=== PATIENT | male | born 1970 | race Caucasian/White ===

== ENCOUNTER 2021-06-05 16:28 | Emergency (ER) | payer OTHER, SELFPAY ==
--- NOTE | ~2021-06-05 | CT_ITS ---
EXAMINATION: CT HEAD WITHOUT CONTRAST CT CERVICAL SPINE WITHOUT CONTRAST CLINICAL INFORMATION: Fall with midline tenderness. COMPARISON: None. TECHNIQUE: Contiguous axial imaging was performed from the skull base to vertex without intravenous administration of contrast. Contiguous axial imaging was performed from the upper chest through the skull base without intravenous administration of contrast. Coronal and sagittal reformats were obtained at the acquisition workstation. This CT examination was performed using dose optimization techniques as appropriate, variously including the following: *Automated exposure control *Adjustment of mA and/or kV according to patient size (this includes techniques or standardized protocols for targeted exams where dose is matched to indication/reason for exam; i.e. extremities or head) *Use of iterative reconstruction technique DLP: 599 mGy-cm FINDINGS: Head: There is no evidence of acute intracranial hemorrhage or edematous territorial infarction. There is no abnormal attenuation within the brain parenchyma. Robb-white matter differentiation is preserved. The ventricles are normal in size and configuration. No evidence for obstructive hydrocephalus. No abnormal mass effect or midline shift. No extra-axial fluid collections. Right occipital scalp laceration with a small hematoma. Mucus retention cyst in the left maxillary sinus. Other paranasal sinuses and mastoids are clear. Cervical Spine: The atlantooccipital and atlantoaxial articulations remain well aligned. Straightening of the normal cervical lordosis and minimal retrolisthesis of C6 on C7. Otherwise, there is anatomic alignment of the vertebral bodies and posterior elements. No evidence of acute fracture or subluxation. Mild cervical spondylosis with disc space narrowing, osteophytes and uncovertebral hypertrophy, more apparent in the lower cervical spine. There is no prevertebral soft tissue swelling. The thyroid gland and remaining cervical soft tissues are normal in appearance. The lung apices demonstrate no abnormalities. CT/CT cervical spine wo con IMPRESSION: No acute intracranial pathology. No acute cervical spinal fractures or malalignment.
[2021-06-05 16:48] VITALS: BP 110/60; BP 133/81; PULSE 64; PULSE 70; RESP 18; TEMP 36.9; O2SAT 100; O2SAT 98; BMI 33.4
--- NOTE | 2021-06-05 18:07 | PC.NURSE ---
Ana Rosa (RN at [facility]) phone number- [phone].
[2021-06-05 18:25] VITALS: BP 144/94; PULSE 60; RESP 15; O2SAT 100
[2021-06-05 18:36] VITALS: BP 116/72; PULSE 76; RESP 16; TEMP 37; O2SAT 99
[2021-06-05] MEDS: Ondansetron ODT 4 MG TAB.RAPDIS TRANSLINGU (18:38)
[2021-06-05] MEDS: Acetaminophen 325 MG TABLET 650 MG PO (18:38)
--- NOTE | 2021-06-05 18:43 | ED.FALL ---
HPI - Fall General Chief Complaint: Fall Stated Complaint: slip and fall on ice Time Seen by Provider: 06/05/21 18:14 Source: patient Mode of arrival: ambulatory Limitations: no limitations History of Present Illness HPI Narrative: Patient comes emergency room complaining of a laceration to his scalp. Patient was at home, playing with his puppy, both were chasing a ball. Patient stepped on ice slipped and hit the back of his head. Patient did not lose consciousness, patient is not on blood thinners. Patient states that he has mild neck pain, complaining of moderate headache. Related Data Allergies Allergy/AdvReac Type Severity Reaction Status Date / Time No Known Allergies Allergy Verified 06/05/21 16:47 Review of Systems Review of Systems: Constitutional : No Weight loss, No Fever, No Chills, No Night Sweats, No Fatigue, No Malaise ENT/Mouth : No Hearing loss, No Ear Pain, No Nasal Congestion, No Sinus Pain, No Hoarseness, No sore throat, No Rhinorrhea, No Swallowing Difficulty Eyes: No Eye Pain, No Swelling, No Redness, No Foreign Body, No Discharge, No Vision Changes Cardiovascular : No Chest Pain, No SOB, No Dyspnea on Exertion, No Orthopnea, No Edema, No Palpitations Respiratory : No Cough, No Sputum, No Wheezing, No Smoke Exposure, No Dyspnea Gastrointestinal : No Nausea, No Vomiting, No Diarrhea, No Constipation, No abdominal Pain, No Hematochezia, No Melena Genitourinary : no irregular bleeding, No Dysuria, No Urinary Frequency, No Hematuria, No Urinary Incontinence, No Urgency, No Flank Pain, No Urinary Flow Changes, No Hesitancy Musculoskeletal : No joint pain, No Myalgias, No Joint Swelling, complaining of mild neck pain posteriorly Skin : Complaining of a laceration to the scalp Neuro : No Weakness, No Numbness, No Paresthesias, No Loss of Consciousness, No Dizziness, complaining of a headache Psych : No Anxiety/Panic, No Depression, No SI/HI/AH/VH, No Social Issues, Heme/Lymph: No Bruising, No Bleeding,No Lymphadenopathy Endocrine : No Polyuria, No Polydipsia, No Temperature Intolerance [facility] Social History Social History Alcohol intake: current Alcohol intake frequency: 0-2 drinks per day Alcohol type: beer Smoked in Last 30 Days: No Use of substances other than those prescribed or required for medical reasons: No Advance Directives: No Advance Directives Information Provided: Yes Physical Exam Vital Signs: Vital Signs: Last Vital Signs Temp 97.9 F 06/05/21 19:16 Pulse 59 06/05/21 19:16 Resp 16 06/05/21 19:16 BP 135/84 06/05/21 19:16 Pulse Ox 100 06/05/21 19:16 BMI result Body Mass Index 33.4 Const: Other: Appearance: Alert. Oriented X3. No acute distress. Eyes: Pupils equal, round and reactive to light. ENT: Pharynx normal. Neck: Normal inspection. Neck supple. No lymph nodes noted. No crepitus CVS: Normal heart rate and rhythm. Pulses normal. Normal S1 and S2 Respiratory: No respiratory distress. Breath sounds normal. No Wheezing. No rales Abdomen: Soft and nontender. No rigidity. No distention. good BS x4 Skin: Skin warm and dry. Y shaped laceration to the scalp Extremities: No lower extremity edema. No Lacerations. No Rash Neuro: Oriented X 3. No motor deficit. No sensory deficit. Moving all extermities. No slurred speech. Course Course Course Narrative: I discussed the CT scan with the patient, no acute findings. Procedures Laceration Laceration 1: Site: scalp Size (cm): 3 Description: stellate and irregular Depth: simple, single layer Local Anesthetic: lidocaine 1% Amount of anesthesia used (mL): 3 Skin layer closed with: other (Nino) Number of sutures: 4 MDM - Fall Imaging Data Head CT and cervical spine CT: Radiologist's impression: FINDINGS: Head: There is no evidence of acute intracranial hemorrhage or edematous territorial infarction. There is no abnormal attenuation within the brain parenchyma. Robb-white matter differentiation is preserved. The ventricles are normal in size and configuration. No evidence for obstructive hydrocephalus. No abnormal mass effect or midline shift. No extra-axial fluid collections. Right occipital scalp laceration with a small hematoma. Mucus retention cyst in the left maxillary sinus. Other paranasal sinuses and mastoids are clear. Cervical Spine: The atlantooccipital and atlantoaxial articulations remain well aligned. Straightening of the normal cervical lordosis and minimal retrolisthesis of C6 on C7. Otherwise, there is anatomic alignment of the vertebral bodies and posterior elements. No evidence of acute fracture or subluxation. Mild cervical spondylosis with disc space narrowing, osteophytes and uncovertebral hypertrophy, more apparent in the lower cervical spine. There is no prevertebral soft tissue swelling. The thyroid gland and remaining cervical soft tissues are normal in appearance. The lung apices demonstrate no abnormalities. CT/CT head/brain wo con IMPRESSION: No acute intracranial pathology. No acute cervical spinal fractures or malalignment. Discharge Plan Discharge Clinical Impression: Laceration of scalp Patient Disposition: Home, Self-Care Instructions: Staple Care (ED) Additional Instructions: Your nino need to be removed in 7-10 days.
[2021-06-05 19:16] VITALS: BP 135/84; PULSE 59; RESP 16; TEMP 36.6; O2SAT 100
== END 2021-06-05 21:25 | disposition home or self-care (01) ==
PROVIDERS: Emergency Provider Emergency Medicine
DX: S01.01XA Laceration without foreign body of scalp, initial encounter (principal); G44.309 Post-traumatic headache, unspecified, not intractable; M54.2 Cervicalgia; W00.0XXA Fall on same level due to ice and snow, initial encounter; Y93.9 Activity, unspecified; Y92.480 Sidewalk as the place of occurrence of the external cause; Y99.9 Unspecified external cause status
CPT/HCPCS: 12002; 70450; 72125; 99284

== ENCOUNTER 2021-07-26 08:40 | Outpatient (REF) | payer OTHER, MEDICAID, SELFPAY ==
[2021-07-26 11:16] LABS: MANUAL DIFF FLAG NO
[2021-07-26 11:22] LABS: Basophils Percent Auto 0.6 % (0-2); Eosinophils Absolute Auto 0.2 X10*3/uL (0.0-0.4); Eosinophils Percent Auto 4.2 % (0-4); Hematocrit 40.6 % (42.0-52.0); Hemoglobin 13.6 g/dl (14.0-18.0); Imm Gran Abs Auto 0.01 X10*3/uL (0.00-0.03); Imm Gran Pct Auto 0.2 % (0.0-0.4); Lymphocytes Percent Auto 40.1 % (20-40); Mean Corpuscular HGB Conc 33.5 g/dl (31.0-36.0); Mean Corpuscular Hemoglobin 29.2 pg (27.0-33.0); Mean Corpuscular Volume 87.3 fL (80.0-98.0); Mean Platelet Volume 10.3 fL (9.4-12.4); Monocytes Absolute Auto 0.5 X10*3/uL (0.1-1.2); Monocytes Percent Auto 10.5 % (2-11); Neutrophils Absolute Auto 2.2 x10*3/uL (2.0-8.3); Neutrophils Percent Auto 44.4 % (45-73); Platelet Count 267 X10*3/uL (160-400); Red Blood Count 4.65 X10*6/uL (4.60-5.80); Red Cell Distribution Width 12.7 % (11.0-16.0)
[2021-07-26 11:47] LABS: Alanine Aminotransferase 43 U/L (0-40); Alkaline Phosphatase 64 U/L (39-117); Anion Gap 13 (12-20); Aspartate Amino Transferase 32 U/L (5-37); Bilirubin Total 0.5 mg/dL (0.0-1.0); Blood Urea Nitrogen 14 mg/dL (9-16); Calcium 9.2 mg/dL (8.4-10.2); Carbon Dioxide 26 mmol/L (22-29); Chloride 105 mmol/L (96-108); Cholesterol 207 mg/dL; Estimated Glomerular Filt Rate > 60; Glucose Fasting 111 mg/dL (60-99); HDL Cholesterol 61 mg/dL; LDL Cholesterol Calculated 136 mg/dl; Potassium 4.6 mmol/L (3.3-5.1); Sodium 139 mmol/L (135-145); Total Protein 6.9 g/dL (6.5-8.0); Triglycerides 50 mg/dL
[2021-07-26 11:53] LABS: TSH reflex Free T4 2.04 uIU/mL (0.32-4.0)
[2021-07-26 12:09] LABS: Estimated Average Glucose 108 mg/dL; Hemoglobin A1c % 5.4 %
[2021-07-26 12:11] LABS: Folate 14.6 ng/mL (> or = 4.0); Vitamin B12 313 pg/mL (200-900)
[2021-07-31 15:06] LABS: Vitamin D 25-OH, D2 <4 ng/mL; Vitamin D 25-OH, D3 23 ng/mL; Vitamin D 25-OH, Total 23 ng/mL (30-100)
== END 2021-07-26 08:41 | disposition home or self-care (01) ==
LOC: HO.HMGCLDS 08:40
PROVIDERS: PCP Nurse Practitioner Acute Care; Visit Provider Nurse Practitioner Acute Care
DX: Z76.89 Persons encountering health services in other specified circumstances (principal)
CPT/HCPCS: 36415; 80053; 80061; 82306; 82607; 82746; 83036; 84443; 85025

== ENCOUNTER 2021-10-23 09:00 | Outpatient (RCR) | payer OTHER, SELFPAY ==
--- NOTE | 2021-08-22 14:57 | MHC.PT.EP ---
[facility] [place] Office [place] Office [place] Office [address] [phone] F: [phone] F: [phone] F: [phone] F: [phone] Physical Therapy Plan of Care Date of Evaluation: Date of Surgery: none Diagnosis: Cervical disc degeneration with radiculopathy Assessment: Patient is a 51 year old R handed male who presents with s/s consistent with cervical disc degeneration with radiculopathy. 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 Patient past medical history is unremarkable. Current impairments include pain, posture, ROM, strength, activity tolerance and functional mobility. Functional limitations include decreased ability to sit, work, work on computer and drive. Patient is motivated with good rehab potential. Skilled PT will address impairments and functional limitations in order to achieve goals. Frequency and Duration: The patient will be seen 2x/week for 5 weeks Short Term Goals: I with HEP - 2 weeks (-) impingement cluster - 3 weeks reduced frequency of thumb paresthesia - 3 weeks Fpc Goals: eliminated thumb paresthesia - 5 weeks completion of work place modifications with reduce cervical s/s - 5 weeks pec tightness min - 5 weeks Treatment Plan: Modalities to reduce pain, spasms and effusion. Manual therapy to restore motion and function. Therapeutic exercise to improve strength and flexibility. Neuromuscular re-education for posture and balance. Therapeutic activities to return to functional activities of daily living. Electronically signed by: Barak Lemus PT Please sign and return to therapist. Thank you for your referral.
--- NOTE | 2022-01-31 10:18 | MHC.PT.DC ---
[facility] [place] Office [place] Office [place] Office [address] [phone] F: [phone] F: [phone] F: [phone] F: [phone] Physical Therapy Discharge Report Diagnosis: Cervical disc degeneration with radiculopathy Date of Surgery: none Date of Evaluation: 08/22/21 Date of Discharge: 11/02/21 Treatments to Date: 11 Cancellations to Date: No Shows to Date: Discharge Status: Improved Function Independent with HEP Discharge Summary: Pt progressed well over the course of PT. He has HEP And eventually had to stop coming to PT and continued exclusively with his HEP. 10/23; Pt sxs resolved after RX. Improved c/s mobility and no c/o N/T Electronically signed by: Barak Lemus, PT Please sign and return to therapist. Thank you for your referral.
== END 2022-01-31 10:18 | disposition home or self-care (01) ==
LOC: HO.PTCHIC 09:00
PROVIDERS: PCP Nurse Practitioner Acute Care; Visit Provider Nurse Practitioner Acute Care
DX: M50.30 Other cervical disc degeneration, unspecified cervical region (principal)
CPT/HCPCS: 97110; 97140; 97161

== ENCOUNTER 2021-12-26 12:13 | Outpatient (REF) | payer OTHER, SELFPAY ==
[2021-12-26 13:54] LABS: MANUAL DIFF FLAG NO
[2021-12-26 13:54] LABS: Appearance Urine Clear; Color Urine Yellow; Glucose Urine UA Negative (Negative); Leukocyte Esterase Urine Negative (Negative); Nitrite Urine Negative (Negative); Specific Gravity - Urine 1.015 (1.005-1.025); Urine Blood Negative (Negative); Urine Ketones Negative (Negative); Urine Protein Negative (Neg-Trace)
[2021-12-26 14:01] LABS: Basophils Percent Auto 0.5 % (0-2); Eosinophils Absolute Auto 0.2 X10*3/uL (0.0-0.4); Eosinophils Percent Auto 3.5 % (0-4); Hematocrit 41.1 % (42.0-52.0); Hemoglobin 14.2 g/dl (14.0-18.0); Imm Gran Abs Auto 0.01 X10*3/uL (0.00-0.03); Imm Gran Pct Auto 0.2 % (0.0-0.4); Lymphocytes Percent Auto 35.1 % (20-40); Mean Corpuscular HGB Conc 34.5 g/dl (31.0-36.0); Mean Corpuscular Hemoglobin 29.8 pg (27.0-33.0); Mean Corpuscular Volume 86.2 fL (80.0-98.0); Mean Platelet Volume 10.4 fL (9.4-12.4); Monocytes Absolute Auto 0.6 X10*3/uL (0.1-1.2); Monocytes Percent Auto 10.5 % (2-11); Neutrophils Absolute Auto 2.9 x10*3/uL (2.0-8.3); Neutrophils Percent Auto 50.2 % (45-73); Platelet Count 248 X10*3/uL (160-400); Red Blood Count 4.77 X10*6/uL (4.60-5.80); Red Cell Distribution Width 12.8 % (11.0-16.0); White Blood Count 5.7 X10*3/uL (4.8-10.8)
[2021-12-26 14:25] LABS: Alanine Aminotransferase 35 U/L (0-40); Albumin Level 4.2 g/dL (3.5-5.0); Alkaline Phosphatase 69 U/L (39-117); Anion Gap 14 (12-20); Aspartate Amino Transferase 28 U/L (5-37); Bilirubin Total 0.4 mg/dL (0.0-1.0); Blood Urea Nitrogen 12 mg/dL (9-16); Calcium 8.9 mg/dL (8.4-10.2); Carbon Dioxide 26 mmol/L (22-29); Chloride 104 mmol/L (96-108); Estimated Glomerular Filt Rate > 60; Glucose Fasting 96 mg/dL (60-99); Potassium 4.7 mmol/L (3.3-5.1); Sodium 139 mmol/L (135-145); Total Protein 7.1 g/dL (6.5-8.0)
[2021-12-26 14:50] LABS: TSH reflex Free T4 2.09 uIU/mL (0.32-4.0)
[2021-12-26 14:59] LABS: Erythrocyte Sedimentation Rate 2 MM/HR (0-15)
[2021-12-27 21:10] LABS: Lyme Abs Screen <0.90 index
== END 2021-12-26 12:14 | disposition home or self-care (01) ==
LOC: HO.HMGCLDS 12:13
PROVIDERS: Visit Provider Family Medicine
DX: Z00.00 Encounter for general adult medical examination without abnormal findings (principal); R53.83 Other fatigue; T14.8XXA Other injury of unspecified body region, initial encounter; W57.XXXA Bitten or stung by nonvenomous insect and other nonvenomous arthropods, initial encounter
CPT/HCPCS: 36415; 80053; 81003; 84443; 85025; 85652; 86617; 86618

== ENCOUNTER 2022-02-15 09:21 | Outpatient (REF) | payer OTHER, SELFPAY ==
[2022-02-15 11:51] LABS: C Reactive Protein 0.36 mg/dL (< or = 0.50); Cholesterol 194 mg/dL; HDL Cholesterol 57 mg/dL; LDL Cholesterol Calculated 128 mg/dl; Triglycerides 48 mg/dL
[2022-02-15 11:58] LABS: Prostate Specific Antigen 0.58 ng/mL (<0.05-4.0)
[2022-02-15 12:06] LABS: Erythrocyte Sedimentation Rate 5 MM/HR (0-15)
== END 2022-02-15 09:22 | disposition home or self-care (01) ==
LOC: HO.HMGCLDS 09:21
PROVIDERS: PCP Internal Medicine; Visit Provider Internal Medicine
DX: Z12.5 Encounter for screening for malignant neoplasm of prostate (principal); R53.83 Other fatigue; E78.5 Hyperlipidemia, unspecified
CPT/HCPCS: 36415; 80061; 84153; 85652; 86140

== ENCOUNTER 2022-03-12 14:54 | Outpatient (REF) | payer OTHER, SELFPAY ==
--- NOTE | ~2022-03-12 | MR_ITS ---
EXAMINATION: MR CERVICAL SPINE WITHOUT CONTRAST CLINICAL INFORMATION: Right arm radiculopathy. COMPARISON: CT dated 06/05/2021. TECHNIQUE: Multiplanar, multisequential imaging of the cervical spine was performed without contrast. FINDINGS: VERTEBRAL BODIES AND PARASPINAL SOFT TISSUES: There is significant disc space narrowing with endplate spurring and a retrosubluxation again visible at the C6-C7 level. The marrow signal is homogeneous. There are no compression fractures. No marrow or soft tissue edema evident. The paraspinal soft tissues are normal. The vertebral artery flow-voids are maintained. The imaged portions of the lungs are grossly clear. CERVICOMEDULLARY JUNCTION AND VISUALIZED POSTERIOR FOSSA: The craniovertebral junction and imaged portions of the brain parenchyma appear normal. No cord signal abnormality or syrinx is seen. SPINAL LEVELS: C2-C3: No disc pathology. Mild uncovertebral joint spurring on the right side with very mild right foraminal encroachment. No central canal stenosis. C3-C4: Small central disc protrusion. No central canal stenosis or foraminal narrowing. C4-C5: Small left paracentral disc protrusion. No central canal stenosis or foraminal encroachment. C5-C6: Mild retrosubluxation and broad-based disc-osteophyte complex with a small central disc protrusion mildly impressing upon the ventral cord and thecal sac. No central canal stenosis. Very mild left foraminal narrowing. C6-C7: Significant loss of disc height and retrosubluxation with a disc-osteophyte complex. Vqwo-qc-orwtgzoh central canal stenosis with btyppete-xs-mdtxno right and severe left foraminal narrowing. C7-T1: No disc abnormality. No central canal stenosis or foraminal narrowing. Mild facet arthropathy. MR/MR cervical spine wo con IMPRESSION: 1. Ewjltsco-ky-xblmtm degenerative disc disease at the C6-C7 level with a retrosubluxation and disc-osteophyte complex resulting in pchf-ej-vbzlpjku central canal stenosis and moderate to severe foraminal narrowing, worse on the left side. 2. Mild retrosubluxation and disc-osteophyte complex with a small central disc protrusion at the C5-C6 level. Small disc protrusions at the C3-C4 and C4-C5 levels.
== END 2022-03-12 14:55 | disposition home or self-care (01) ==
LOC: HO.MRI 14:54
PROVIDERS: Visit Provider Psychiatry & Neurology Neurology
DX: M54.12 Radiculopathy, cervical region (principal)
CPT/HCPCS: 72141

== ENCOUNTER 2022-05-11 11:46 | Outpatient (REF) | payer OTHER, SELFPAY ==
--- NOTE | ~2022-05-11 | XR_ITS ---
EXAMINATION: XR chest 2V CLINICAL INFORMATION: Reason for Exam R05.9 - Cough, unspecified COMPARISON: No prior chest x-ray available in our system for comparison at the time of this dictation. TECHNIQUE: XR chest 2V Lungs and Rosalie: Both lungs are clear. Pleura: Normal. Costophrenic angles are sharp. No pneumothorax. Heart: The heart is normal in size. Mediastinum: The mediastinum is within normal limits.. Bones: Skeletal structures included are normal for patient's age. XR/XR chest 2V IMPRESSION: Normal chest x-ray.
[2022-05-11 14:53] LABS: Influenza A PCR NEGATIVE (Negative); Influenza B PCR NEGATIVE (Negative); Resp Syncy Virus RNA Qual PCR NEGATIVE (Negative); SARS COV2 PCR INHOUSE NEGATIVE (Negative)
== END 2022-05-11 11:47 | disposition home or self-care (01) ==
LOC: HO.HMGCX 11:46
PROVIDERS: PCP Nurse Practitioner Family; Visit Provider Physician Assistant Medical
DX: Z20.822 Contact with and (suspected) exposure to COVID-19 (principal); R05.9 Cough, unspecified
CPT/HCPCS: 0241U; 71046

== ENCOUNTER 2022-08-15 09:00 | Outpatient (RCR) | payer OTHER, SELFPAY ==
--- NOTE | 2022-07-18 12:14 | MHC.PT.EP ---
[facility] [place] Office [place] Office [place] Office [address] [phone] F: [phone] F: [phone] F: [phone] F: [phone] Physical Therapy Plan of Care Date of Evaluation: Date of Surgery: Diagnosis: Neck and shoulder pain, DDD Assessment: Patient is a 51 year old R handed male who presents with s/s consistent with neck and shoulder pain, DDD. 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 Patient past medical history includes chronic neck pain, anxiety and depression. Current impairments include pain, posture, ROM, strength, activity tolerance and functional mobility. Functional limitations include decreased ability to sleep, sit, drive, push, pull, lift, carry and garden. Patient is motivated with good rehab potential. Skilled PT will address impairments and functional limitations in order to achieve goals. Frequency and Duration: The patient will be seen 2x/week for 5 weeks Short Term Goals: I with HEP - 2 weeks TTP absent in [place] and [place] - 3 weeks Pec tightness min on R - 3 weeks Snf Goals: NPDI 14% or better - 5 weeks Able to sit/drive > 30 minutes without increased pain - 5 weeks Able to perform normal spring yard work without increased pain - 5 weeks Improved postural awareness - 5 weeks centralized s/s - 5 weeks Treatment Plan: Modalities to reduce pain, spasms and effusion. Manual therapy to restore motion and function. Therapeutic exercise to improve strength and flexibility. Neuromuscular re-education for posture and balance. Therapeutic activities to return to functional activities of daily living. Electronically signed by: Barak Lemus, PT Please sign and return to therapist. Thank you for your referral.
--- NOTE | 2022-10-22 07:16 | MHC.PT.DC ---
[facility] [place] Office [place] Office [place] Office [address] [phone] F: [phone] F: [phone] F: [phone] F: [phone] Physical Therapy Discharge Report Diagnosis: Neck and shoulder pain, DDD Date of Surgery: Date of Evaluation: 07/18/22 Date of Discharge: 09/12/22 Treatments to Date: 5 Cancellations to Date: No Shows to Date: Discharge Status: Improved Function Independent with HEP Discharge Summary: Pt stopped PT and is feeling better. Would like to pursue PT for back pain. 08/15; Improved c/s SB after SNAG. Pt L rotated with L L4,5 rot. Reduced c/o pain with improved flexion after RX. 08/13/22: pt with improved postural awareness. improving pain free ROM. progressing strength with good response. 08/06/22: pt has been feeling sore for the last few days. responding well to above program with reduced tissue tension and improved postural awareness. we did discuss s/s management today. 08/01; Pt L c/s rotation limited with c/o pinching in scalenes. Patient is a 51 year old R handed male who presents with s/s consistent with neck and shoulder pain, DDD. 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 Patient past medical history includes chronic neck pain, anxiety and depression. Current impairments include pain, posture, ROM, strength, activity tolerance and functional mobility. Functional limitations include decreased ability to sleep, sit, drive, push, pull, lift, carry and garden. Patient is motivated with good rehab potential. Skilled PT will address impairments and functional limitations in order to achieve goals. Electronically signed by: Barak Lemus, PT Please sign and return to therapist. Thank you for your referral.
== END 2022-10-22 07:16 | disposition home or self-care (01) ==
LOC: HO.PTCHIC 09:00
PROVIDERS: PCP Nurse Practitioner Family; Visit Provider Psychiatry & Neurology Neurology
DX: M54.2 Cervicalgia (principal); M25.511 Pain in right shoulder; M25.512 Pain in left shoulder
CPT/HCPCS: 97014; 97110; 97140; 97162

== ENCOUNTER → 2022-08-19 11:30 | Outpatient (BNVA) | payer OTHER, SELFPAY | PROVIDERS: PCP Nurse Practitioner Family; Visit Provider Anesthesiology | DX: M47.812 Spondylosis without myelopathy or radiculopathy, cervical region (principal); M50.30 Other cervical disc degeneration, unspecified cervical region; G89.4 Chronic pain syndrome | CPT/HCPCS: 99202 ==

== ENCOUNTER 2022-08-31 10:52 | Outpatient (REF) | payer OTHER, SELFPAY ==
--- NOTE | ~2022-08-31 | XR_ITS ---
EXAMINATION: XR ABDOMEN COMPLETE CLINICAL INDICATION: Reason for Exam M54.50 - Low back pain, unspecified COMPARISON: None TECHNIQUE: AP view of the abdomen. FINDINGS: Lines or devices: None. Nonobstructive bowel gas pattern. Mild colonic stool burden. Supine technique limits evaluation for extraluminal air although no secondary findings are appreciated. Numerous calcifications in the pelvis which may reflect phleboliths although a distal ureteral stone or bladder stone would be difficult to exclude. XR/XR KUB IMPRESSION: 1. Numerous calcifications in the pelvis which may reflect phleboliths although a distal ureteral stone or bladder stone would be difficult to exclude.
--- NOTE | ~2022-08-31 | XR_ITS ---
EXAMINATION: XR LUMBOSACRAL SPINE CLINICAL INFORMATION: Reason for Exam M54.50 - Low back pain, unspecified COMPARISON: None TECHNIQUE: 3 views of the lumbar spine FINDINGS: 5 nonrib-bearing lumbar-type vertebral bodies. Vertebral body heights are maintained. Great 1 retrolisthesis of L4 on L5. Multilevel degenerative disc disease worst at L4-L5 and L5-S1 where there is moderate loss of disc space height and facet arthropathy. Paravertebral soft tissues are unremarkable. XR/XR lumbar spine 2-3V IMPRESSION: * Moderate spondylosis of the lumbar spine, as above detailed. * Spondylolisthesis, as above detailed.
== END 2022-08-31 10:53 | disposition home or self-care (01) ==
LOC: HO.HMGCX 10:52
PROVIDERS: PCP Nurse Practitioner Family; Visit Provider Physician Assistant
DX: M54.50 Low back pain, unspecified (principal)
CPT/HCPCS: 72100; 74018

== ENCOUNTER 2022-09-30 13:00 | Outpatient (RCR) | payer OTHER, SELFPAY ==
--- NOTE | 2022-09-13 14:13 | MHC.PT.EP ---
[facility] [place] Office [place] Office [place] Office [address] [phone] F: [phone] F: [phone] F: [phone] F: [phone] Physical Therapy Plan of Care Date of Evaluation: Date of Surgery: Diagnosis: LBP Assessment: 52 y/o male referred to PT with LBP. S/s consistent with lumbar derangement resulting in pain and difficulty with prolonged standing, dancing, yoga, woodworking, sitting and walking secondary to decreased lumbar/ hip AROM, decreased core/hip strength, pain, and impaired postural awareness. Recommend PT 2x/week for 5 weeks to address impairments, implement HEP and optimize functional mobility. Educated pt on pain, breathing for downregulating our nervous system and returning to movement with intention Frequency and Duration: The patient will be seen 2x/week for 5 weeks Short Term Goals: 3 weeks I with HEP Pt will demonstrate TrA without breath holding and without bulging Will educate pt on body mechanics with hobbies Shelter Goals: 5 weeks I with HEP and self management of sx Pt will be able to stand > 30 minutes with LBP > 3/10 Pt will reports >50% decrease in pain levels with ADL's (ranges 2-10) Treatment Plan: Modalities to reduce pain, spasms and effusion. Manual therapy to restore motion and function. Therapeutic exercise to improve strength and flexibility. Neuromuscular re-education for posture and balance. Therapeutic activities to return to functional activities of daily living. Electronically signed by: Paula Ackerman PT Please sign and return to therapist. Thank you for your referral.
--- NOTE | 2022-11-08 08:44 | MHC.PT.DC ---
[facility] [place] Office [place] Office [place] Office [address] [phone] F: [phone] F: [phone] F: [phone] F: [phone] Physical Therapy Discharge Report Diagnosis: LBP Date of Surgery: Date of Evaluation: 09/13/22 Date of Discharge: 11/08/22 Treatments to Date: 3 Cancellations to Date: 1 No Shows to Date: 0 Discharge Status: Independent with HEP Discharge Summary: Pt did not f/u with further visits. At time of last visit, pt demonstrated improved body mechanics and I with HEP. D/c at this time Electronically signed by: Paula Ackerman PT Please sign and return to therapist. Thank you for your referral.
== END 2022-11-08 08:44 | disposition home or self-care (01) ==
LOC: HO.PTCHIC 13:00
PROVIDERS: PCP Nurse Practitioner Family; Visit Provider Nurse Practitioner Family
DX: M54.50 Low back pain, unspecified (principal)
CPT/HCPCS: 97110; 97112; 97161

== ENCOUNTER 2022-10-11 07:53 | Outpatient (REF) | payer OTHER, SELFPAY ==
[2022-10-11 11:33] LABS: MANUAL DIFF FLAG NO
[2022-10-11 11:57] LABS: Basophils Absolute Auto 0.1 X10*3/uL (0.0-0.2); Eosinophils Absolute Auto 0.2 X10*3/uL (0.0-0.4); Eosinophils Percent Auto 3.2 % (0-4); Hemoglobin 14.2 g/dl (14.0-18.0); Imm Gran Abs Auto 0.01 X10*3/uL (0.00-0.03); Imm Gran Pct Auto 0.2 % (0.0-0.4); Lymphocytes Absolute Auto 2.1 X10*3/uL (1.2-4.9); Lymphocytes Percent Auto 40.9 % (20-40); Mean Corpuscular HGB Conc 33.8 g/dl (31.0-36.0); Mean Corpuscular Hemoglobin 28.9 pg (27.0-33.0); Mean Corpuscular Volume 85.5 fL (80.0-98.0); Mean Platelet Volume 10.2 fL (9.4-12.4); Monocytes Absolute Auto 0.7 X10*3/uL (0.1-1.2); Monocytes Percent Auto 13.5 % (2-11); Neutrophils Absolute Auto 2.1 x10*3/uL (2.0-8.3); Neutrophils Percent Auto 41.2 % (45-73); Platelet Count 267 X10*3/uL (160-400); Red Blood Count 4.91 X10*6/uL (4.60-5.80); Red Cell Distribution Width 12.9 % (11.0-16.0)
[2022-10-11 12:19] LABS: Alanine Aminotransferase 29 U/L (0-40); Alkaline Phosphatase 75 U/L (39-117); Anion Gap 11 (12-20); Aspartate Amino Transferase 25 U/L (5-37); Bilirubin Total 0.8 mg/dL (0.0-1.0); Blood Urea Nitrogen 9 mg/dL (9-16); Calcium 9.1 mg/dL (8.4-10.2); Carbon Dioxide 28 mmol/L (22-29); Chloride 105 mmol/L (96-108); Cholesterol 187 mg/dL; Estimated Glomerular Filt Rate > 60; Glucose Fasting 107 mg/dL (60-99); HDL Cholesterol 61 mg/dL; LDL Cholesterol Calculated 115 mg/dl; Potassium 4.3 mmol/L (3.3-5.1); Sodium 140 mmol/L (135-145); Total Protein 6.6 g/dL (6.5-8.0); Triglycerides 57 mg/dL
[2022-10-11 12:43] LABS: TSH reflex Free T4 2.06 uIU/mL (0.32-4.0); Vitamin D 25-OH Total 29.9 ng/mL (>30)
== END 2022-10-11 07:54 | disposition home or self-care (01) ==
LOC: HO.HMGCLDS 07:53
PROVIDERS: PCP Nurse Practitioner Family; Visit Provider Nurse Practitioner Family
DX: F32.9 Major depressive disorder, single episode, unspecified (principal)
CPT/HCPCS: 36415; 80053; 80061; 82306; 84443; 85025

== ENCOUNTER 2022-11-21 11:21 | Outpatient (AMB) | payer OTHER, SELFPAY ==
[2022-11-21 11:21] VITALS: BMI 31.9
--- NOTE | 2022-11-21 11:21 | A.OFFVIS_ITS ---
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 States it happens with cooler weather and also effects his hands/fingers w/ tingling. States also happens with his nose. Started noticing this past winter/late fall. 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 He reports that is happened on several occasions on the last few months. He notes that his legs become discolored arms any even the tip of his nose. He has never experienced this in his life before. He notes that he is a nonsmoker nondiabetic and otherwise doing fairly healthy. He also reports that he does have ADHD and is well maintained. He has minimal caffeine intake of about 1 cup a day. Any reports routine life stressors but is been doing fairly well. Of note he was able to show me a picture with a classic livedo reticularis image of his legs. [facility] Medical History ADHD, predominantly inattentive type Depression Generalized anxiety disorder Pigmentary glaucoma Tick bites Social History Household Members: Children Housing: House Alcohol intake: current Alcohol intake frequency: 0-2 drinks per day Alcohol type: beer Patient Tobacco Use Status: Former Tobacco user Tobacco use type: Cigarette e-Cigarette/Vaping Use: Never Used Second Hand Smoke Exposure: No service: No Current occupational status: employed Cognitive needs: No Hearing needs: No Vision needs: No Review of Systems Const All systems reviewed & are unremarkable except as noted in HPI and below Reports no additional complaints ENT Reports Normal hearing present Card Denies chest pain, Denies chest pain at rest, Denies chest pain with activity and Denies pedal edema Resp Denies cough GI Denies abdominal pain Musc Denies abnormal gait, Denies muscle cramps and Denies radiating pain into limb Skin/Breast Denies skin ulcer and Denies wounds Neuro Reports Normal hearing present and Denies abnormal gait Psych Reports no additional complaints Physical Exam Vital Signs: BMI result Body Mass Index 31.9 Const General: cooperative, healthy appearing and comfortable Orientation/consciousness: oriented to person, oriented to place and oriented to time HEENT Head: Yes normal to inspection Neck Neck: Yes normal visual inspection Carotids: no bruits Chest Chest palpation & inspection: normal inspection of the chest Resp Effort & Inspection: normal respiratory effort and able to speak in complete sentences Auscultation: clear to auscultation bilaterally, no crackles, no rales, no rhonchi and no wheezes Cardio Rate: regular rate Rhythm: regular rhythm Heart sounds: S1 normal heart sound present and S2 normal heart sound present Bruits: no carotid bruits Peripheral pulses: Peripheral pulses 2+ throughout GI Inspection: Yes normal to inspection Skin Other: At the time of my exam there was no discoloration but it was a normal tempe rature day. Wounds: no wounds Hair: normal Neuro General: oriented to person, oriented to place and oriented to time Cranial nerves: Yes CN's II-XII intact bilaterally and Yes Normal hearing present Cognition (Neuro): normal cognition Motor exam (neuro): 5/5 motor strength present throughout Extrem Other: venous exam: No significant superficial varicosities or spider telangiectasias, minimal edema General: No clubbing, No cyanosis and No edema Psych Appearance: grossly normal Mental Status: mental status grossly normal Speech and movement: Normal speech and movement present Assessment & Plan Assessment & Plan (1) Varicose veins of right lower extremity with inflammation: Code(s): I83.11 - Varicose veins of right lower extremity with inflammation Plan: My suspicion for venous disease is quite low. He does not exhibit any specific swelling but on obtaining it to rule it out in addition he has normal palpable arterial pulses as well. (2) Raynauds disease: Code(s): I73.00 - Raynaud's syndrome without gangrene Plan: In short the patient may have an element of Raynaud's syndrome. He showed me a classic image of livido reticularis which is pathognomonic for this as well. I have discussed the pathophysiology with the patient, inclusive of spasming of the vessels and change in color of digits from white, red, and blue. We have discussed prevention inclusive of protection hand and feet at all times, reduction of caffeine intake, and reduction of stressors. Also smoking cessation may help improve issues. At the current time the patient appears to be stable. He will follow up with us after venous insufficiency testing to rule that out. Thank you for allowing us to assist in his care Orders: Orders US venous duplex LE 1 Week I83.11 - Varicose veins of right lower extremity with inflammation Coding Level of Care Code New Pt Level 4 (26362) Diagnoses Varicose veins of right lower extremity with inflammation I83.11 Raynauds disease I73.00
== END 2022-11-21 12:00 | disposition home or self-care (01) ==
LOC: HO.HVS 11:21
PROVIDERS: PCP Nurse Practitioner Family; Visit Provider Surgery Vascular Surgery
DX: I83.11 Varicose veins of right lower extremity with inflammation (principal); I73.00 Raynaud's syndrome without gangrene
CPT/HCPCS: 99213

== ENCOUNTER → 2022-11-21 11:21 | Outpatient (BNVA) | payer OTHER, SELFPAY | PROVIDERS: PCP Nurse Practitioner Family; Visit Provider Surgery Vascular Surgery | DX: I83.11 Varicose veins of right lower extremity with inflammation (principal); I73.00 Raynaud's syndrome without gangrene | CPT/HCPCS: 99212 ==

== ENCOUNTER 2023-01-08 08:23 | Outpatient (REF) | payer OTHER, SELFPAY ==
--- NOTE | ~2023-01-08 | US_ITS ---
EXAMINATION: US VENOUS REFLUX/INSUFFICIENCY CLINICAL INFORMATION: Varicose veins of right lower extremity with inflammation COMPARISON: None. TECHNIQUE: Bilateral lower extremity venous insufficiency ultrasound was performed with velocity measurements. Color flow Doppler imaging was performed. FINDINGS: RIGHT SIDE: No evidence of DVT or venous reflux within the common femoral, mid femoral, or popliteal vein. GREATER SAPHENOUS VEIN: The right saphenofemoral junction measures 0.6cm. The reflux time is 0 ms. Proximal thigh measures 0.4cm. Reflux time is 0 ms. Mid thigh measures 0.2cm. Reflux time is 0 ms. Above-knee measures 0.3cm. Reflux time is 0 ms. At the knee measures 0.3cm. Reflux time is 0 ms. Below the knee measures 0.2cm. Reflux time is 0 ms. Mid calf measures 0.2cm. Reflux time is 0 ms. At the level of the ankle it measures 0.2cm. Reflux time is 0 ms. There is a lateral accessory saphenous vein which measures 0.3 cm and 0.2 cm SMALL SAPHENOUS VEIN: The saphenopopliteal junction measures 0.2 cm. Reflux time is 0 ms. The midcalf segment measures 0.2 cm. Reflux time is 0 ms.. The distal calf segment measures 0.2cm. Reflux time is 0 ms. The midcalf and distal calf segments of the small saphenous vein are noncompressible suggesting thrombus/thrombophlebitis. LEFT SIDE: No evidence of DVT or venous reflux within the common femoral, mid femoral, or popliteal vein. GREATER SAPHENOUS VEIN: The left saphenofemoral junction measures 0.9cm. The reflux time is 0 ms. Proximal thigh measures 0.5cm. Reflux time is 0 ms. Mid thigh measures 0.2cm. Reflux time is 1460 ms. Above-knee measures 0.2cm. Reflux time is 0 ms. At the knee measures 0.2cm. Reflux time is 0 ms. Below the knee measures 0.2cm. Reflux time is 2832 ms. Mid calf measures 0.2cm. Reflux time is 0 ms. At the level of the ankle it measures0.1cm. Reflux time is 0 ms. There is a lateral accessory saphenous vein which measures 0.2 cm at the saphenofemoral junction and 0.1 cm of the mid thigh. No reflux is demonstrated. SMALL SAPHENOUS VEIN: The saphenopopliteal junction measures 0.2 cm. Reflux time is 0 ms. The midcalf segment measures 0.2 cm. Reflux time is 0 ms. The lower calf segment measures 0.3cm. Reflux time is 0 ms. The mid and distal calf segments of the small saphenous vein are only partially compressible suggesting partial thrombosis/thrombophlebitis. US/US venous duplex LE BI IMPRESSION: No evidence of deep venous thrombosis or deep venous reflux seen. Noncompressible mid to distal segments of the small saphenous veins bilaterally suggesting thrombosis/thrombophlebitis. On the right there is no evidence of venous reflux. On the left there is segmental venous reflux within the mid thigh and below knee segments of the great saphenous vein.
== END 2023-01-08 08:24 | disposition home or self-care (01) ==
LOC: HO.US 08:23
PROVIDERS: PCP Nurse Practitioner Family; Visit Provider Surgery Vascular Surgery
DX: I83.11 Varicose veins of right lower extremity with inflammation (principal)
CPT/HCPCS: 93970

== ENCOUNTER 2023-04-15 13:59 | Outpatient (AMB) | payer OTHER, SELFPAY ==
[2023-04-15 13:59] VITALS: BMI 31.9
--- NOTE | 2023-04-15 13:59 | A.OFFVIS_ITS ---
Intake Vital Signs 04/15/23 13:59 Height 5 ft 8 in Weight 210 lb BMI 31.9 Intake Visit Reasons: FU US Intake Note: follow up US 01/08/2023, for bilateral LE discoloration and coldness. Pt states that feet, hands and nose turn blue, red and white when its cold or cool outside w/ tingling. No LE pain Accompanied by: Self / Same As Patient Allergies No Known Allergies Allergy (Verified 04/15/23 14:12) HPI FU US HPI Details Very pleasant 52-year-old gentleman presents for follow-up evaluation regarding discoloration on his lower extremities. He has had no significant interval changes. He is noticing the discoloration on the upper and lower extremities along with the tip of his nose especially currently with the extreme changes in temperature. He is just concerned about the pathophysiology of this and what is really causing this. He now presents for follow-up evaluation. [facility] Medical History Tick bites Pigmentary glaucoma ADHD, predominantly inattentive type Generalized anxiety disorder Depression Social History Household Members: Children Housing: House Alcohol intake: current Alcohol intake frequency: 0-2 drinks per day Alcohol type: beer Patient Tobacco Use Status: Former Tobacco user Tobacco use type: Cigarette e-Cigarette/Vaping Use: Never Used Second Hand Smoke Exposure: No service: No Current occupational status: employed Cognitive needs: No Hearing needs: No Vision needs: No Review of Systems Const All systems reviewed & are unremarkable except as noted in HPI and below Reports no additional complaints ENT Reports Normal hearing present Card Denies chest pain, Denies chest pain at rest, Denies chest pain with activity and Denies pedal edema Resp Denies cough GI Denies abdominal pain Musc Denies abnormal gait, Denies muscle cramps and Denies radiating pain into limb Skin/Breast Denies skin ulcer and Denies wounds Neuro Reports Normal hearing present and Denies abnormal gait Psych Reports no additional complaints Physical Exam Vital Signs: BMI result Body Mass Index 31.9 Const General: cooperative, healthy appearing and comfortable Orientation/consciousness: oriented to person, oriented to place and oriented to time HEENT Head: Yes normal to inspection Neck Neck: Yes normal visual inspection Carotids: no bruits Chest Chest palpation & inspection: normal inspection of the chest Resp Effort & Inspection: normal respiratory effort and able to speak in complete sentences Auscultation: clear to auscultation bilaterally, no crackles, no rales, no rhonchi and no wheezes Cardio Rate: regular rate Rhythm: regular rhythm Heart sounds: S1 normal heart sound present and S2 normal heart sound present Bruits: no carotid bruits Peripheral pulses: Peripheral pulses 2+ throughout GI Inspection: Yes normal to inspection Skin Wounds: no wounds Hair: normal Neuro General: oriented to person, oriented to place and oriented to time Cranial nerves: Yes CN's II-XII intact bilaterally and Yes Normal hearing present Cognition (Neuro): normal cognition Motor exam (neuro): 5/5 motor strength present throughout Extrem Other: venous exam: No significant superficial varicosities or spider telangiectasias, minimal edema General: No clubbing, No cyanosis and No edema Psych Appearance: grossly normal Mental Status: mental status grossly normal Speech and movement: Normal speech and movement present Results Reviewed Results Reviewed: Brief summary of venous insufficiency testing is as follows: right great saphenous vein: negative right small saphenous vein: negative right accessory vein: none present left great saphenous vein: negative left small saphenous vein: negative left accessory vein: none present Please note there is no evidence of any venous aneurysms or significant tortuosity Assessment & Plan Assessment & Plan (1) Varicose veins of right lower extremity with inflammation: Code(s): I83.11 - Varicose veins of right lower extremity with inflammation Plan: Venous insufficiency testing was negative. Would continue with conservative measures including compression elevation and exercise. (2) Raynauds disease: Code(s): I73.00 - Raynaud's syndrome without gangrene Qualifiers: Raynaud?s-associated gangrene presence: without gangrene Qualified Code(s): I73.00 - Raynaud's syndrome without gangrene Plan: In short the patient may have an element of Raynaud's syndrome. I have discussed the pathophysiology with the patient, inclusive of spasming of the vessels and change in color of digits from white, red, and blue. We have discussed prevention inclusive of protection hand and feet at all times, reduction of caffeine intake, and reduction of stressors. Also smoking cessatio n may help improve issues. At the current time the patient appears to be stable. Should this persist may need follow-up with Rheumatology and use a calcium channel carlos a. The patient will follow up with us on an as-needed basis. Coding Level of Care Code Est Pt Level 4 (26262) Diagnoses Varicose veins of right lower extremity with inflammation I83.11 Raynaud's disease without gangrene I73.00 Raynaud?s-associated gangrene presence: without gangrene
== END 2023-04-15 14:40 | disposition home or self-care (01) ==
PROVIDERS: PCP Nurse Practitioner Family; Visit Provider Surgery Vascular Surgery
DX: I83.11 Varicose veins of right lower extremity with inflammation (principal); I73.00 Raynaud's syndrome without gangrene
CPT/HCPCS: 99213

== ENCOUNTER → 2023-04-15 13:59 | Outpatient (BNVA) | payer OTHER, SELFPAY | PROVIDERS: PCP Nurse Practitioner Family; Visit Provider Surgery Vascular Surgery | DX: I83.11 Varicose veins of right lower extremity with inflammation (principal); I73.00 Raynaud's syndrome without gangrene | CPT/HCPCS: 99212 ==

== ENCOUNTER 2023-10-21 13:06 | Outpatient (AMB) | payer OTHER, SELFPAY ==
[2023-10-21 13:12] VITALS: BP 128/80; PULSE 77; RESP 14; TEMP 36.6; O2SAT 99; BMI 34.7
--- NOTE | 2023-10-21 13:12 | A.OFFPC_ITS ---
Vital Signs 10/21/23 13:12 Height 5 ft 8 in Weight 228 lb 2 oz BMI 34.7 BP 128/80 Blood Pressure Location Rt brachial Position Sitting Respiration 14 Pulse 77 Pulse Source Pulse Oximeter Temp 97.8 F Temp Source Temporal Artery Scan Pulse Oximetry (%) 99 Oxygen Delivery Method Room Air Intake Visit Reasons: Transfer care/Niecy Battery Loader Required: No Accompanied by: Self / Same As Patient Allergies Seasonal Allergies Allergy (Intermediate, Verified 10/21/23 14:03) Itchy Eyes Medication List - Last Reconciled 10/21/23 by Silvestre Diaz CNP cholecalciferol (vitamin D3) 25 mcg PO DAILY clonazepam 0.25 mg PO BEDTIME lisdexamfetamine (Vyvanse) 30 mg PO BID lisdexamfetamine (Vyvanse) 30 mg PO BID metronidazole 1% (Metrogel) 1 appl topical DAILY PRN trazodone 50 mg PO BEDTIME venlafaxine ER 37.5 mg PO DAILY Tobacco use date assessed: 10/21/23 Dental Screening Dental Screen Date: 10/21/23 Did you have a dental visit in the last 12 months?: Yes Did you have a dental problem in the last 6 months where you did not have access to dental care?: No Was dental information given to patient?: Patient has dentist HPI HPI Comments History of Present Illness Details 53-year-old male presents for transfer of care. His former PCP is Niecy Xiao. He has PMH significant for depression, anxiety, ADHD (inattentive type), degenerative disc disease of cervical spine, hyperlipidemia, vitamin D deficiency, COLBY-on CPAP; black, oval skin lesion behind his right knee, family history positive for skin cancer - requests to see a flower cheniller; rosacea - on Metrogel PRN (no outbreaks in a while). He notes that he was recently seen by an engineer intern who discovered that he does not have pigmentary glaucoma and took him off the eye drops he was on. He reports controlled anxiety, depression, and ADHD symptoms on current treatment regimen. He is followed by a PMHNP via telehealth monthly. She manages his psychotropic medications. He is resuming psychotherapy (in-person) next week. He notes that his CPAP is old and its parts are very expensive. He requests to be reevaluated for his sleep apnea so he can be prescribed an affordable CPAP. He states that he has been attending online groups that assist with alcohol dependence and weight management He denies acute symptoms at this time. Former cigarette smoker. He drinks 3-4 beers nightly for the past 2 years. Smoke cannabis occasionally at night He notes that he is followed by engineer intern annually and optometry twice yearly. His last eye exam was 2 weeks ago: normal findings He gets routine dental care He has never had a colonoscopy He has never been vaccinated for shingles He does not recall his last tetanus vaccine [facility] Medical History (Updated 10/21/23 @ 14:50 by Silvestre Diaz CNP) Tick bites Pigmentary glaucoma ADHD, predominantly inattentive type Generalized anxiety disorder Depression Surgical History History of root canal procedure Family History Other Mental health disorder Substance abuse Social History Household Members: Children Housing: House Alcohol intake: current Alcohol intake frequency: 0-2 drinks per day Alcohol type: beer Patient Tobacco Use Status: Former Tobacco user Tobacco use type: Cigarette and Smokeless Tobacco e-Cigarette/Vaping Use: Former Use Second Hand Smoke Exposure: No service: No Current occupational status: employed 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 1. Little interest or pleasure in doing things: nearly every day 2. Feeling down, depressed, or hopeless: more than half the days 3. Trouble falling or staying asleep, or sleeping too much: not at all 4. Feeling tired or having little energy: more than half the days 5. Poor appetite or overeating: nearly every day 6. Feeling bad about yourself - or that you are a failure or have let yourself or your family down: more than half the days 7. Trouble concentrating on things, such as reading the newspaper or watching television: not at all 8. Moving or speaking so slowly that other people could have noticed. Or the opposite - being so fidgety or restless that you have been moving around a lot more than usual: not at all 9. Thoughts that you would be better off or of hurting yourself in some way: not at all Total score: 12 Depression Screening Interpretation: Positive Depression Screening Follow-up: Existing condition and In treatment Depression Screening Done: Yes 68689 - PHQ-9 Billing: Yes Source: Developed by Drs. Davide Bauman, Lyn Turner, Darci Contreras and colleagues, with an educational gonzalo from [employer]. Thrive Questionnaire Date Thrive assessed: 10/21/23 I am a: Patient What is your living situation today?: I have a steady place to live Within the past 12 months, did the food you bought not last and you didn't have the money to get more?: Never true Within the past 12 months, did you worry whether your food would run out before you got money to buy more?: Never true Do you have trouble paying for medicines?: No Do you have trouble getting transportation to medical appointments?: No Do you have trouble paying your heating and electricity bill?: No Do you have trouble taking care of your child, family member or friend?: No Do you have trouble with day-to-day activities such as bathing, preparing meals, shopping, managing finances, etc.?: No Are you currently unemployed and looking for a job?: No Are you interested in more education?: No Please select the resources that you would like help with: None Currently or been in a relationship where the following occur: no concerns reported THRIVE Score: 0 AUDIT C Alcohol Use Questionnaire (AUDIT-C) 1. How often do you have a drink containing alcohol?: 4 or more times a week 2. How many drinks containing alcohol do you have on a typical day when you are drinking?: 3 or 4 3. How often do you have six or more drinks on one occasion?: Never Total Score: 5 MARIA M-7 AMB Questionnaire MARIA M-7 Date MARIA M - 7 assessed: 10/21/23 Feeling nervous, anxious, or on edge: 2 = More than half the days Not being able to stop or control worryin = Several days Worrying too much about different things: 1 = Several days Trouble relaxin = Nearly every day Being so restless that it is hard to sit still: 1 = Several days Becoming easily annoyed or irritable: 1 = Several days Feeling afraid as if something awful might happen: 2 = More than half the days Total MARIA M-7 score (0-4 normal; 5-9 mild; 10-14 moderate; 15-21 severe): 11 Source: Developed by Drs. Davide Bauman, Lyn Turner, Darci Contreras and colleagues, with an educational gonzalo from [employer]. MARIA M-7 Assessment Billing MARIA M-7 Assessment Tool: MARIA M-7 Assessment 55227 Review of Systems Const Details: Denies chills, Denies fatigue, Denies fever(s), Denies headache(s) and Denies weakness HEENT Denies change in vision, Denies dizziness, Denies headache(s), Denies hearing loss, Denies nasal congestion, Denies sinus pain, Denies sinus pressure and Denies sore throat Card Denies chest pain, Denies lightheadedness, Denies dyspnea and Denies other (palpitations) Resp Denies cough, Denies dyspnea and Denies wheezing GI Denies abdominal pain, Denies melena, Denies hematochezia, Denies change in bowel habits, Denies dyspepsia and Denies nausea Denies hematuria and Denies dysuria Musc Denies abnormal gait, Denies myalgias, Denies arthralgias, Denies numbness and Denies tingling Skin/Breast Denies rash, Denies unusual bruising and Denies wounds Neuro Denies abnormal gait, Denies dizziness, Denies headache(s), Denies memory loss, Denies numbness, Denies Sensory deficit (Neuro), Denies tingling and Denies weakness Psych Denies anxiety, Denies depression and Denies memory loss Endo Denies cold intolerance, Denies fatigue, Denies heat intolerance, Denies polydipsia and Denies polyuria Jaden/Lymph Denies easy bleeding and Denies easy bruising Aller/Immun Denies wheezing Physical exam (Primary Care) Vital Signs: Last Vital Signs Temp 97.8 F 10/21/23 13:12 Pulse 77 10/21/23 13:12 Resp 14 10/21/23 13:12 BP 128/80 10/21/23 13:12 Pulse Ox 99 10/21/23 13:12 Oxygen Delivery Method Room Air 10/21/23 13:12 BMI result Body Mass Index 34.7 Tobacco/Smoking Status: Tobacco use Status Tobacco use date assessed 10/21/23 10/21/23 13:33 Patient Tobacco Use Status Current someday Tobacco 10/21/23 13:33 Tobacco use type Cigarette,Smokeless Tobacco 10/21/23 13:33 e-Cigarette/Vaping Use Former Use 10/21/23 13:33 PHQ-9: PHQ-9 Score PHQ-9: Total score 12 10/21/23 13:33 Depression Screening Interpretation: Positive Depression Screening Follow-up: Existing condition and In treatment Thrive Assessment: Date of Thrive Assessment Date Thrive assessed 10/21/23 10/21/23 13:33 Currently or been in a relationship where the following occur: no concerns reported Const Other: General: no acute distress, well developed, alert and awake Nutritional Appearance: well nourished Orientation/consciousness: patient oriented x3 HENMT Head: Yes normocephalic and Yes atraumatic Ears: hearing grossly normal bilaterally and TM's normal bilaterally General nose exam: Normal external nose present and Normal nares present Mouth: Normal oral and palatal mucosa present and moist mucous membranes Teeth and gingiva: dentition normal Throat: Yes oropharynx normal Eyes Pupils: Equal, round and reactive pupils present and Pupil accommodation reflex normal EOM: EOMs intact bilaterally Neck Neck: Yes normal visual inspection, Yes no lymphadenopathy and Yes trachea midline Thyroid: Thyroid normal Carotids: no bruits Lymphatic: no lymphadenopathy noted Chest Chest palpation & inspection: normal inspection of the chest Resp Effort & Inspection: normal respiratory effort Auscultation: clear to auscultation bilaterally Cardio Rate: regular rate Rhythm: regular rhythm Heart sounds: S1 normal heart sound present, S2 normal heart sound present, no gallops, no murmurs and no rubs Bruits: no abdominal aortic bruits and no carotid bruits GI Palpation (GI): No Abdominal aortic bruit present, Soft to palpation, nontender, No hepatosplenomegaly present and No Rebound tenderness present Auscultation: normal bowel sounds General: Yes no CVA tenderness Back/Spine/Pelvis Back: no CVA tenderness Cervical Spine: cervical ROM normal and No Cervical spine tenderness Thoracic/Lumbar Spine: thoraco-lumbar ROM normal, No pain with thoraco-lumbar ROM, No thoracic spinal tenderness and No lumbar spinal tenderness Skin General: warm and dry. Normal skin color. Normal skin turgor Lesions: black, oval skin lesion behind his right knee Rashes: no rashes Trauma: no lacerations or abrasions Wounds: no wounds Nails: normal Neuro General: patient oriented x3, gait normal and CN's II-XI intact bilaterally Cranial nerves: Yes Equal, round and reactive pupils present Cognition (Neuro): normal cognition Gait exam (Neuro): Normal gait present Motor exam (neuro): 5/5 motor strength present throughout Sensory Exam: No Sensory deficit (Neuro) Deep tendon reflexes (DTR's): Right patellar reflex intensity grade: 2+ and Left patellar reflex intensity grade: 2+ Extrem General: Yes normal to inspection, No edema and No calf tenderness Psych Appearance: grossly normal Affect: normal affect Attitude: cooperative Thought process: Normal thought process present Assessment and Plan Assessment & Plan (1) Adult general medical exam: Code(s): Z00.00 - Encounter for general adult medical examination without abnormal findings Plan: No significant physical restrictions or limitations noted Continue current treatment regimen Healthy diet and routine exercise encouraged Advised to get lab work done 2-3 weeks for telehealth visit for labs review Return with symptoms or concerns Rerbalized understanding and agreed with he treatment plan (2) ADHD, predominantly inattentive type: Code(s): F90.0 - Attention-deficit hyperactivity disorder, predominantly inattentive type Plan: Controlled ADHD, anxiety, and depressive symptoms current treatment regimen PHQ-9 and MARIA M-7 scores revealed moderate depression and anxiety Continue current treatment regimen Continue follow-up with PMHP and therapist as planned Return with symptoms or concerns Verbalized understanding and agreed with the treatment plan (3) Generalized anxiety disorder: Code(s): F41.1 - Generalized anxiety disorder Plan: As above (4) Depression: Code(s): F32.A - Depression, unspecified Qualifiers: Depression Type: other depression Qualified Code(s): F32.89 - Other specified depressive episodes Plan: As above (5) Hyperlipidemia: Code(s): E78.5 - Hyperlipidemia, unspecified Qualifiers: Hyperlipidemia type: pure hypercholesterolemia Qualified Code(s): E78.00 - Pure hypercholesterolemia, unspecified Plan: Will check lipid panel (6) Skin lesion: Code(s): L98.9 - Disorder of the skin and subcutaneous tissue, unspecified Plan: Black, oval skin lesion behind his right knee Referred to dermatology (7) Rosacea: Code(s): L71.9 - Rosacea, unspecified Plan: No acute symptoms Continue metronidazole as needed (8) COLBY (obstructive sleep apnea): Code(s): G47.33 - Obstructive sleep apnea (adult) (pediatric) Plan: He notes that his CPAP is old and its parts are very expensive. He requests to be reevaluated for his sleep apnea so he can be prescribed an affordable CPAP [place] [facility] [place] (9) Low vitamin D level: Code(s): R79.89 - Other specified abnormal findings of blood chemistry Plan: Will check vitamin-D level (10) Alcohol dependence: Code(s): F10.20 - Alcohol dependence, uncomplicated Plan: He has been drinking 3-4 beers nightly for the past 2 years He as been attending online groups that assist with alcohol dependence and weight management He declines referral to addiction medicine at this time and notes he will continue to attend current online groups Instructed on the health risks and complications of excessive alcohol intake and encouraged to limit or avoid drinking alcohol He may inform his PCP if he needs additional help He verbalized understanding and agreed with the plan (11) Obesity (BMI 30-39.9): Code(s): E66.9 - Obesity, unspecified Plan: He currently weighs 228 lb, BMI is 34.7 Healthy diet and routine exercise encouraged Ceclines referral to dietitian or weight management at this time Will continue to attendnd groups for weight management Encouraged to inform his PCP if he needs additional help Verbalized understanding and agreed with the plan (12) Screening for colon cancer: Code(s): Z12.11 - Encounter for screening for malignant neoplasm of colon Plan: He has never had a colonoscopy Referred to [facility] gastroenterology for a colonoscopy (13) Vaccine counseling: Code(s): Z71.85 - Encounter for immunization safety counseling Plan: He has never been vaccinated for shingles Instructed on the health benefits of vaccinations and encouraged to get vaccinated for shingles. He may request vaccines from his local pharmacy Verbalized understanding and agreed with treatment plan (14) Laboratory tests ordered as part of a complete physical exam (CPE): Code(s): Z00.00 - Encounter for general adult medical examination without abnormal findings Plan: Fasting labs ordered as part of a complete physical exam. Advised to fast for at least 10 hours before getting labs drawn. May drink water Verbalized understanding and agreed with treatment plan. Orders: Orders Complete Blood Count Auto Diff Today Z00.00 - Encounter for general adult medical examination without abnormal findings Comprehensive [place]. Panel Fast Today Z00.00 - Encounter for general adult medical examination without abnormal findings Lipid Panel Today Z00.00 - Encounter for general adult medical examination without abnormal findings TSH reflex Free T4 Today Z00.00 - Encounter for general adult medical examination without abnormal findings UA CC w/rflx Micro + Cult Today Z00.00 - Encounter for general adult medical examination without abnormal findings PSA, Ultra Sensitive Today Z00.00 - Encounter for general adult medical examination without abnormal findings Vitamin D 25-OH Total Today R79.89 - Other specified abnormal findings of blood chemistry Referrals Dermatology Referral L98.9 - Disorder of the skin and subcutaneous tissue, unspecified Sleep Medicine Referral G47.33 - Obstructive sleep apnea (adult) (pediatric) Gastroenterology Referral Z12.11 - Encounter for screening for malignant neoplasm of colon Coding Level of Care Code Est Pt Level 4 (94760) Est Pt Prev Care 40-64y(32344) Diagnoses Adult general medical exam Z00.00 ADHD, predominantly inattentive type F90.0 Generalized anxiety disorder F41.1 Other depression F32.89 Depression Type: other depression Pure hypercholesterolemia E78.00 Hyperlipidemia type: pure hypercholesterolemia Skin lesion L98.9 Rosacea L71.9 COLBY (obstructive sleep apnea) G47.33 Low vitamin D level R79.89 Alcohol dependence F10.20 Obesity (BMI 30-39.9) E66.9 Screening for colon cancer Z12.11 Vaccine counseling Z71.85 Laboratory tests ordered as part of a complete physical exam (CPE) Z00.00 Additional Codes MARIA M-7 Assessment Billing - MARIA M-7 Assessment Tool: MARIA M-7 Assessment 27830 ([id number])
== END 2023-10-21 14:35 | disposition home or self-care (01) ==
PROVIDERS: Visit Provider Nurse Practitioner Family
DX: Z00.00 Encounter for general adult medical examination without abnormal findings (principal); F10.20 Alcohol dependence, uncomplicated; F90.0 Attention-deficit hyperactivity disorder, predominantly inattentive type; F41.1 Generalized anxiety disorder; F32.89 Other specified depressive episodes; E78.00 Pure hypercholesterolemia, unspecified; L98.9 Disorder of the skin and subcutaneous tissue, unspecified; L71.9 Rosacea, unspecified; G47.33 Obstructive sleep apnea (adult) (pediatric); R79.89 Other specified abnormal findings of blood chemistry; E66.9 Obesity, unspecified; Z12.11 Encounter for screening for malignant neoplasm of colon
CPT/HCPCS: 99396

== ENCOUNTER 2023-11-03 13:46 | Outpatient (AMB) | payer OTHER, SELFPAY ==
--- NOTE | 2023-11-03 14:17 | A.OFFVIS_ITS ---
Vital Signs 11/03/23 14:21 Pulse 75 Pulse Source Pulse Oximeter Pulse Oximetry (%) 99 Oxygen Delivery Method Room Air Intake Visit Reasons: 10/22LVM+Let INP-COLBY-lvm Intake Note: Patient presents for COLBY Patient has a machine that was given to him in [place],needs replacements parts or new machine Allergies Seasonal Allergies Allergy (Intermediate, Verified 11/03/23 14:20) Itchy Eyes Medication List - Last Reconciled 11/03/23 by AMBREEN Muse cholecalciferol (vitamin D3) 25 mcg PO DAILY clonazepam 0.25 mg PO BEDTIME lisdexamfetamine (Vyvanse) 30 mg PO BID lisdexamfetamine (Vyvanse) 30 mg PO BID metronidazole 1% (Metrogel) 1 appl topical DAILY PRN trazodone 50 mg PO BEDTIME venlafaxine ER 37.5 mg PO DAILY HPI Comments Details: 53-yr-old male presents for new in-person patient visit for sleep consultation. Patient reports he was diagnosed with sleep apnea approx 6-7 yrs ago in [place]. He states he underwent HST as he was having fatigue, very loud snoring, gasping, apneas, sleep difficulties. He states he was diagnosed w/ moderate COLBY. He was started on a ResMed APAP device. He uses his APAP nightly, sleeps well and feels well rested with use. His machine no longer transmits to his Resmed Airview Patrick. The machine does show his residual events are < 2/hr but does show poor seal at times. He has since moved to [facility], and no longer has a PAP resp supplier. Has been buying his PAP supplies online, however he can no longer find filter replacements for his machine. He has been having to wash and repeatedly resue his old PAP filters. He can have vivid dreams. He denies RLS, GERD, nocturia, am headaches. He does not recall who his previous respiratory supplier. He does not have a copy of his last HST. [facility] Medical History (Updated 10/21/23 @ 14:50 by Silvestre Diaz CNP) Tick bites Pigmentary glaucoma ADHD, predominantly inattentive type Generalized anxiety disorder Depression Surgical History History of root canal procedure Family History Other Mental health disorder Substance abuse Social History Household Members: Children Housing: House Alcohol intake: current Alcohol intake frequency: 0-2 drinks per day Alcohol type: beer Patient Tobacco Use Status: Former Tobacco user Tobacco use type: Cigarette and Smokeless Tobacco e-Cigarette/Vaping Use: Former Use Second Hand Smoke Exposure: No service: No Current occupational status: employed 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 Cognitive needs: No Hearing needs: Yes Vision needs: Yes Physical Exam Vital Signs: Last Vital Signs Pulse 75 11/03/23 14:21 Pulse Ox 99 11/03/23 14:21 Oxygen Delivery Method Room Air 11/03/23 14:21 Const General: no acute distress Orientation/consciousness: patient oriented x3 HEENT Other: Mallampati stage 3 Resp Effort & Inspection: normal respiratory effort and able to speak in complete sentences Cardio Rate: regular rate Rhythm: regular rhythm Neuro General: patient oriented x3 Psych Mental Status: mental status grossly normal Speech and movement: Clear speech present Attitude: cooperative Assessment & Plan Assessment & Plan (1) COLBY (obstructive sleep apnea): Code(s): G47.33 - Obstructive sleep apnea (adult) (pediatric) Category: Medical Plan Pt is advised to undergo f/u HST sleep study to assess status of sleep apnea, as pt does not have previous sleep study reports. In the meantime, continue APAP nightly, as pt has good clinical effect from use. Upon review of the HST, consider request for new PAP device w/ remote compliance monitoring capabilities. Will f/u with pt after study to discuss results and appropriate treatment options. Pt to call with any worsening concerns or questions. Orders: Orders RT home sleep study Today G47.33 - Obstructive sleep apnea (adult) (pediatric) Coding Level of Care Code New Pt Level 3 (82418) Diagnoses COLBY (obstructive sleep apnea) G47.33
[2023-11-03 14:21] VITALS: PULSE 75; O2SAT 99
== END 2023-11-03 15:14 | disposition home or self-care (01) ==
PROVIDERS: Visit Provider Nurse Practitioner Family
DX: G47.33 Obstructive sleep apnea (adult) (pediatric) (principal)
CPT/HCPCS: 99203

== ENCOUNTER → 2023-11-03 13:46 | Outpatient (BNVA) | payer OTHER, SELFPAY | PROVIDERS: Visit Provider Nurse Practitioner Family ==

== ENCOUNTER 2023-11-11 07:40 | Outpatient (REF) | payer OTHER, SELFPAY ==
[2023-11-11 11:04] LABS: MANUAL DIFF FLAG NO
[2023-11-11 11:16] LABS: Appearance Urine Clear; Basophils Percent Auto 0.7 % (0-2); Color Urine Yellow; Eosinophils Absolute Auto 0.3 X10*3/uL (0.0-0.4); Glucose Urine UA Negative (Negative); Hematocrit 42.9 % (42.0-52.0); Hemoglobin 14.6 g/dl (14.0-18.0); Imm Gran Abs Auto 0.02 X10*3/uL (0.00-0.03); Imm Gran Pct Auto 0.4 % (0.0-0.4); Leukocyte Esterase Urine Negative (Negative); Lymphocytes Absolute Auto 2.1 X10*3/uL (1.2-4.9); Lymphocytes Percent Auto 36.3 % (20-40); Mean Corpuscular Hemoglobin 29.9 pg (27.0-33.0); Mean Corpuscular Volume 87.7 fL (80.0-98.0); Mean Platelet Volume 10.2 fL (9.4-12.4); Monocytes Absolute Auto 0.6 X10*3/uL (0.1-1.2); Neutrophils Absolute Auto 2.6 x10*3/uL (2.0-8.3); Neutrophils Percent Auto 46.6 % (45-73); Nitrite Urine Negative (Negative); Platelet Count 290 X10*3/uL (160-400); Red Blood Count 4.89 X10*6/uL (4.60-5.80); Red Cell Distribution Width 12.6 % (11.0-16.0); Specific Gravity - Urine 1.015 (1.005-1.025); Urine Blood Negative (Negative); Urine Ketones Negative (Negative); Urine Protein Negative (Neg-Trace); White Blood Count 5.6 X10*3/uL (4.8-10.8)
[2023-11-11 12:04] LABS: Alanine Aminotransferase 32 U/L (0-40); Albumin Level 3.9 g/dL (3.5-5.0); Alkaline Phosphatase 63 U/L (39-117); Anion Gap 12 (12-20); Aspartate Amino Transferase 28 U/L (5-37); Bilirubin Total 0.8 mg/dL (0.0-1.0); Blood Urea Nitrogen 9 mg/dL (9-16); Carbon Dioxide 27 mmol/L (22-29); Chloride 105 mmol/L (96-108); Cholesterol 191 mg/dL (<200); Estimated Glomerular Filt Rate > 60; Glucose Fasting 98 mg/dL (60-99); HDL Cholesterol 54 mg/dL (>40); LDL Cholesterol Calculated 119 mg/dL (<100); Potassium 4.1 mmol/L (3.3-5.1); Sodium 140 mmol/L (135-145); Total Protein 6.8 g/dL (6.5-8.0); Triglycerides 92 mg/dL (<150)
[2023-11-11 12:10] LABS: TSH reflex Free T4 1.77 uIU/mL (0.32-4.0); Vitamin D 25-OH Total 35.6 ng/mL (>30)
[2023-11-16 17:29] LABS: PSA, Ultra Sensitive 0.61 ng/mL
== END 2023-11-11 07:41 | disposition home or self-care (01) ==
LOC: HO.HMGCLDS 07:40
PROVIDERS: PCP Nurse Practitioner Family; Visit Provider Nurse Practitioner Family
DX: Z00.00 Encounter for general adult medical examination without abnormal findings (principal); R79.89 Other specified abnormal findings of blood chemistry; Z12.5 Encounter for screening for malignant neoplasm of prostate
CPT/HCPCS: 36415; 80053; 80061; 81003; 82306; 84153; 84443; 85025

== ENCOUNTER 2024-01-14 08:21 | Outpatient (AMB) | payer OTHER, SELFPAY ==
[2024-01-14 08:51] VITALS: BP 124/80; PULSE 74; TEMP 37.1; O2SAT 98; BMI 34.8
--- NOTE | 2024-01-14 08:51 | AM.OFFWIN_ITS ---
Intake Vital Signs 01/14/24 08:51 Height 5 ft 8 in Weight 229 lb BMI 34.8 BP 124/80 Blood Pressure Location Lt brachial Position Sitting Pulse 74 Pulse Source Pulse Oximeter Temp 98.7 F Temp Source Oral Pulse Oximetry (%) 98 Oxygen Delivery Method Room Air Intake Visit Reasons: EP ?strep throat Intake Note: pt c/o sore throat, fatigue. Started yesterday. Daughter positive for strep Patient Tobacco Use Status: Former Tobacco user Allergies Seasonal Allergies Allergy (Intermediate, Verified 01/14/24 09:00) Itchy Eyes Do you need a note to return to daycare/school/sports/work: No HPI EP ?strep throat HPI Details This note is constructed using voice recognition software. While every effort has been made to ensure accuracy, grants administrator errors may have been included. The patient is a 53 year old male who presents to the clinic today with sore throat for 1 day. He notes that his daughter was positive for strep. He has not had a fever yet, but started to feel a small headache yesterday and sore throat. He denies cough, shortness of breath, known fever, chills, body aches, ear pain, sinus pressure, or any other symptoms. [facility] Medical History (Updated 10/21/23 @ 14:50 by Silvestre Diaz CNP) Tick bites Pigmentary glaucoma ADHD, predominantly inattentive type Generalized anxiety disorder Depression Surgical History History of root canal procedure Family History Other Mental health disorder Substance abuse Social History Household Members: Children Housing: House Alcohol intake: current Alcohol intake frequency: 0-2 drinks per day Alcohol type: beer Patient Tobacco Use Status: Former Tobacco user Tobacco use type: Cigarette and Smokeless Tobacco e-Cigarette/Vaping Use: Former Use Second Hand Smoke Exposure: No service: No Current occupational status: employed 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 [employer] Cognitive needs: No Hearing needs: Yes Vision needs: Yes Review of Systems Const All systems reviewed & are unremarkable except as noted in HPI and below Physical Exam Vital Signs: Last Vital Signs Temp 98.7 F 01/14/24 08:51 Pulse 74 01/14/24 08:51 BP 124/80 01/14/24 08:51 Pulse Ox 98 01/14/24 08:51 Oxygen Delivery Method Room Air 01/14/24 08:51 BMI result Body Mass Index 34.8 Const General: cooperative, healthy appearing, comfortable and no acute distress Orientation/consciousness: patient oriented x3 Limitations: no limitations HEENT Head: Yes normal to inspection Ears: hearing grossly normal bilaterally, external ears normal and TM's normal bilaterally General nose exam: Normal external nose present, Normal nares present and No nasal discharge present Face and sinus: Yes normal facial exam and Yes sinuses nontender Mouth: Normal oral and palatal mucosa present and moist mucous membranes Throat: Yes tonsils normal, Yes uvula midline and Yes posterior oropharynx abnormal (Erythema with exudate) Eyes General: appearance normal, both eyes and all related structures Neck Neck: Yes normal visual inspection and Yes lymphadenopathy (anterior) Resp Effort & Inspection: normal respiratory effort, able to speak in complete sentences, Actively coughing, no respiratory distress, not tachypneic, no tripod positioning and no use of accessory muscles Auscultation: clear to auscultation bilaterally Cardio Rate: regular rate Rhythm: regular rhythm Heart sounds: normal S1 and S2 Skin General skin exam: no rashes or lesions noted Neuro General: patient oriented x3 Extrem General: Yes normal to inspection and Yes no clubbing, cyanosis or edema Results AMB Rapid Strep AMB Rapid Strep Positive Last Edit by Meng Lagunas CMA on 01/14/24 09:09 Results Reviewed Results Reviewed: Laboratory Last Values Strep Scn [facility] Positive 01/14/24 09:06 Assessment & Plan Assessment & Plan (1) URI (upper respiratory infection): Code(s): J06.9 - Acute upper respiratory infection, unspecified Qualifiers: URI type: unspecified URI Qualified Code(s): J06.9 - Acute upper respiratory infection, unspecified Plan: Viral swab obtained to rule out Covid based on symptoms. Advised mask wearing while symptomatic and quarantine per current CDC guidelines. Reviewed at home support methods including hydration, humidification, vix vapor rub, sinus rinse. Discussed treatment with antiviral therapy for covid with paxlovid including appropriate use and side effects, and need to start medication within 5 day of symptom onset, preferably within 48 hours of symptom onset. Patient wishes to decline paxlovid. Advised follow up with worsening symptoms such as dyspnea at rest, which would require emergent evaluation. (2) Strep pharyngitis: Code(s): J02.0 - Streptococcal pharyngitis Plan: In office rapid strep positive for strep. Advised patient to change toothbrush 24 hours after starting antibiotics. Amoxicillin sent to the pharmacy. Advised avoidance of exposure to others to prevent spread. [id number] treatments such as Advil and Chloraseptic spray for pain management advised. Advised follow up with worsening or failure to resolve. Plan See above for full details and plan. Orders: Orders AMB Rapid Strep Screen Today Rachelle Crawford PA-C Z13.9 - Encounter for screening, unspecified SARS-CoV2/FLU/RSV Today Rachelle Crawford PA-C J06.9 - Acute upper respiratory infection, unspecified Medications: New amoxicillin 500 mg PO BID 10 days 20 caps 0RF Saskia Salas NP Coding Level of Care Code Est Pt Level 3 (61079) Diagnoses Upper respiratory tract infection, unspecified type J06.9 URI type: unspecified URI Strep pharyngitis J02.0
== END 2024-01-14 10:06 | disposition home or self-care (01) ==
PROVIDERS: PCP Nurse Practitioner Family; Visit Provider Registered Nurse
DX: J06.9 Acute upper respiratory infection, unspecified (principal); J02.9 Acute pharyngitis, unspecified
CPT/HCPCS: 87880; 99213

== ENCOUNTER 2024-01-14 09:06 | Outpatient (REF) | payer OTHER, SELFPAY ==
[2024-01-14 13:11] LABS: Influenza A PCR NEGATIVE (Negative); Influenza B PCR NEGATIVE (Negative); Resp Syncy Virus RNA Qual PCR NEGATIVE (Negative); SARS COV2 PCR INHOUSE NEGATIVE (Negative)
== END 2024-01-14 09:07 | disposition home or self-care (01) ==
LOC: HO.LAB 09:06
PROVIDERS: Visit Provider Physician Assistant
DX: J06.9 Acute upper respiratory infection, unspecified (principal); Z13.9 Encounter for screening, unspecified
CPT/HCPCS: 0241U

== ENCOUNTER 2024-01-27 13:16 | Outpatient (REF) | payer OTHER, SELFPAY ==
[2024-01-27 19:55] LABS: Influenza A PCR NEGATIVE (Negative); Influenza B PCR NEGATIVE (Negative); Resp Syncy Virus RNA Qual PCR NEGATIVE (Negative); SARS COV2 PCR INHOUSE NEGATIVE (Negative)
== END 2024-01-27 13:17 | disposition home or self-care (01) ==
LOC: HO.LAB 13:16
PROVIDERS: PCP Nurse Practitioner Family; Visit Provider Physician Assistant
DX: J06.9 Acute upper respiratory infection, unspecified (principal)
CPT/HCPCS: 0241U; 87880

== ENCOUNTER 2024-01-27 13:16 | Outpatient (AMB) | payer OTHER, SELFPAY ==
[2024-01-27 13:39] VITALS: BP 122/78; PULSE 63; TEMP 37.1; O2SAT 98; BMI 34.8
--- NOTE | 2024-01-27 13:39 | MHC.OFFWIV ---
Intake Vital Signs 01/27/24 13:39 Height 5 ft 8 in Weight 229 lb BMI 34.8 BP 122/78 Blood Pressure Location Rt brachial Position Sitting Pulse 63 Pulse Source Pulse Oximeter Temp 98.8 F Temp Source Oral Pulse Oximetry (%) 98 Oxygen Delivery Method Room Air Intake Visit Reasons: EP Sore throat, cough Intake Note: pt c/o sore throat and cough, Started this morning Patient Tobacco Use Status: Former Tobacco user Allergies Seasonal Allergies Allergy (Intermediate, Verified 01/14/24 09:00) Itchy Eyes Do you need a note to return to daycare/school/sports/work: No HPI HPI Comments History of Present Illness Details This is a 53-year-old male with a past medical history of ADHD and insomnia presenting for evaluation of a sore throat and cough that he has had since last night. Patient was diagnosed with strep pharyngitis on January 13 in his completed his course of antibiotic therapy. Patient denies having any fevers, chills, otalgia, shortness of breath or chest pain. Patient has taken nasal fluticasone only without relief of his symptoms. [facility] Medical History Tick bites Pigmentary glaucoma ADHD, predominantly inattentive type Generalized anxiety disorder Depression Surgical History History of root canal procedure Family History Other Mental health disorder Substance abuse Social History Household Members: Children Housing: House Alcohol intake: current Alcohol intake frequency: 0-2 drinks per day Alcohol type: beer Patient Tobacco Use Status: Former Tobacco user Tobacco use type: Cigarette and Smokeless Tobacco e-Cigarette/Vaping Use: Former Use Second Hand Smoke Exposure: No service: No Current occupational status: employed 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 Cognitive needs: No Hearing needs: Yes Vision needs: Yes Review of Systems Const All systems reviewed & are unremarkable except as noted in HPI and below Denies chills, Denies fatigue and Denies fever(s) Eyes Reports no additional complaints ENT Denies otalgia, Denies hearing loss, Denies hoarseness and Reports sore throat Card Reports no additional complaints and Denies dyspnea Resp Reports no additional complaints, Denies change in phlegm color, Denies chest congestion, Reports cough, Denies hemoptysis, Denies dyspnea and Denies wheezing GI Reports no additional complaints Reports no additional complaints Musc Reports no additional complaints Skin/Breast Reports system reviewed and no additional complaints, except as documented Neuro Reports no additional complaints Psych Reports no additional complaints Endo Denies fatigue Aller/Immun Reports no additional complaints and Denies wheezing Physical Exam Vital Signs: Last Vital Signs Temp 98.8 F 01/27/24 13:39 Pulse 63 01/27/24 13:39 BP 122/78 01/27/24 13:39 Pulse Ox 98 01/27/24 13:39 Oxygen Delivery Method Room Air 01/27/24 13:39 BMI result Body Mass Index 34.8 Patient is afebrile, POX 98% on room air. Const General: cooperative, healthy appearing, comfortable, no acute distress, well developed, alert, awake and Physically active Nutritional Appearance: average body habitus Orientation/consciousness: patient oriented x3 Limitations: no limitations HEENT Head: Yes normal to inspection Ears: hearing grossly normal bilaterally, external ears normal, TM's normal bilaterally and EAC's normal General nose exam: Normal external nose present Face and sinus: Yes normal facial exam and Yes sinuses nontender Mouth: Normal oral and palatal mucosa present Teeth and gingiva: dentition normal Throat: Yes posterior oropharynx normal and No postnasal drainage Eyes General: appearance normal, both eyes and all related structures Neck Lymphatic: no lymphadenopathy noted Resp Effort & Inspection: normal respiratory effort, able to speak in complete sentences, normal respiratory pattern, no audible wheezes, no cough and no respiratory distress Auscultation: clear to auscultation bilaterally Cardio Rate: regular rate Rhythm: regular rhythm Skin General skin exam: no rashes or lesions noted Neuro General: patient oriented x3 Psych Appearance: grossly normal Mental Status: mental status grossly normal Insight: Good insight present (Psych) Judgement: Good judgement present (Psych) Results AMB Rapid Strep AMB Rapid Strep Negative Last Edit by Meng Lagunas CMA on 01/27/24 13:57 Results Reviewed Results Reviewed: Laboratory Last Values Strep Scn [facility] Negative 01/27/24 13:56 Rapid strep is negative; SARS testing pending at this time. Assessment & Plan Assessment & Plan (1) Acute upper respiratory infection: Comment: Rapid strep test is negative and there is no clinical evidence of a pneumonia or otitis media. Patient is afebrile at this time. COVID testing is pending. Code(s): J06.9 - Acute upper respiratory infection, unspecified Plan: Ibuprofen or Tylenol as needed for discomfort and the patient is advised to continue taking fluticasone once daily as he does describe having seasonal allergies. COVID testing pending at this time. Orders: Orders SARS-CoV2/FLU/RSV Today J06.9 - Acute upper respiratory infection, unspecified AMB Rapid Strep Screen Today Z13.9 - Encounter for screening, unspecified Coding Level of Care Code Est Pt Level 3 (96689) Diagnoses Acute upper respiratory infection J06.9 Time Spent (min) 20
== END 2024-01-27 14:17 | disposition home or self-care (01) ==
PROVIDERS: PCP Nurse Practitioner Family; Visit Provider Physician Assistant
DX: Z13.9 Encounter for screening, unspecified (principal); J06.9 Acute upper respiratory infection, unspecified

== ENCOUNTER 2024-02-02 13:18 | Outpatient (AMB) | payer OTHER, SELFPAY ==
[2024-02-02 13:20] VITALS: BP 148/94; PULSE 68; O2SAT 100; BMI 35.0
--- NOTE | 2024-02-02 13:20 | A.OFFVIS_ITS ---
Vital Signs 02/02/24 13:20 Height 5 ft 8 in Weight 230 lb 2.601 oz BMI 35.0 BP 148/94 H Blood Pressure Location Rt brachial Position Sitting Pulse 68 Pulse Source Pulse Oximeter Pulse Oximetry (%) 100 Oxygen Delivery Method Room Air Intake Visit Reasons: Routine colo scrn Intake Note: Dhaval presents in office today for a scheduled colo consult. CC; Pt reports that this will be their initial colo procedure. Pt reports that their PCP recommended this based on age considerations. Pt reports family hx of lung and skin cancers, no colon cancer noted. Pt denies any GI sx at this time. Assessment Coordinator Required: No Allergies Seasonal Allergies Allergy (Intermediate, Verified 02/02/24 13:26) Itchy Eyes HPI HPI Routine colo scrn: Details: 53 year old? male here today for pre colonoscopy screening.? Patient was sent to us by his PCP.? This is his first colonoscopy screening.? Patient denies any gastrointestinal symptoms in the past or at present.? History of alcohol abuse, history of GERD will be sent for endoscopy. Denies any personal or family history of gastrointestinal disease, colon polyps, or CRC.? Denies history of difficulty with sedation or anesthesia in the past.? Negative for history of sleep apnea.? Denies any history of cardiac, renal, pulmonary, or hepatic disease.?? No history of infectious? diseases like hepatitis A, B, C, HIV or tuberculosis.? Patient is not on any anticoagulation [facility] Medical History Tick bites Pigmentary glaucoma ADHD, predominantly inattentive type Generalized anxiety disorder Depression Surgical History (Updated 02/02/24 @ 13:26 by EDDIE Choi) [place] teeth extracted History of root canal procedure Family History Maternal Grandfather Lung cancer Mother Basal cell carcinoma Other Mental health disorder Substance abuse Social History Household Members: Children Housing: House Alcohol intake: current Alcohol intake frequency: 0-2 drinks per day Alcohol type: beer Patient Tobacco Use Status: Former Tobacco user Tobacco use type: Cigarette and Smokeless Tobacco e-Cigarette/Vaping Use: Former Use Second Hand Smoke Exposure: No service: No Current occupational status: employed 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 Cognitive needs: No Hearing needs: Yes Vision needs: Yes Review of Systems Const Denies weight gain and Denies weight loss ENT Reports no additional complaints, Denies dysphagia and Denies odynophagia Card Reports no additional complaints Resp Reports no additional complaints GI Denies abdominal pain, Denies belching, Denies melena, Denies bloating, Denies change in bowel habits, Denies dysphagia, Denies excessive flatus, Denies dyspepsia, Denies heartburn, Denies diarrhea, Denies loose stools, Denies nausea, Denies odynophagia and Denies vomiting Reports no additional complaints Musc Reports no additional complaints Neuro Reports no additional complaints Psych Reports no additional complaints Endo Reports no additional complaints Physical Exam Vital Signs: Last Vital Signs Pulse 68 02/02/24 13:20 BP 148/94 H 02/02/24 13:20 Pulse Ox 100 02/02/24 13:20 Oxygen Delivery Method Room Air 02/02/24 13:20 BMI result Body Mass Index 35.0 Const General: healthy appearing, no acute distress and well developed Nutritional Appearance: well nourished Orientation/consciousness: patient oriented x3 Resp Effort & Inspection: normal respiratory effort, able to speak in complete sentences, no tracheal deviation and symmetric chest movement Auscultation: clear to auscultation bilaterally Cardio Rate: regular rate GI Inspection: Yes normal to inspection and No distended Palpation (GI): Soft to palpation, not firm, nontender and No hepatosplenomegaly present Auscultation: normal bowel sounds General: Yes no CVA tenderness Back/Spine/Pelvis Back: no CVA tenderness Skin General skin exam: elasticity normal, turgor normal and dry skin Neuro General: patient oriented x3 Psych Appearance: grossly normal Mental Status: mental status grossly normal Assessment & Plan Assessment & Plan (1) Screening for colon cancer: Code(s): Z12.11 - Encounter for screening for malignant neoplasm of colon Category: Medical Plan Patient denies any GI, cardiac or respiratory symptoms.? Denies any issues with anesthesia in the past.? Denies any history of sleep apnea.? No history i nfectious diseases in the past or present.? Not on any anticoagulation therapy.? No family or personal history of colon cancer or polyps.? Patient denies melena, hematochezia, unintentional weight loss or ribbon like stools.? Discussed at length the pre-procedure,? prep, diet & medications as well as what to expect prior, during and after the procedure.?? Stressed the importance of good bowel prep.? Recommended the use of Vaseline or Calmoseptine OTC & baby wipes with bowel movements to promote comfort.? ?Patient verbalizes understanding and agrees to plan of care.? She was given the opportunity to ask questions and all questions answered.? We will see her after the procedure.? Medications: New bisacodyl (Dulcolax (bisacodyl)) take 4 tabs at noon the day before your colonoscopy 20 mg (4 x 5 mg) PO ONCE 1 day 4 tabs 0RF Z12.11 - Encounter for screening for malignant neoplasm of colon polyethylene glycol 3350 (Miralax) As directed by gastroenterology department at [facility] 238 grams PO ONCE 238 grams 0RF Z12.11 - Encounter for screening for malignant neoplasm of colon Coding Level of Care Code New Pt Level 3 (23864) Diagnoses Screening for colon cancer Z12.11 Time Spent (min) 40 Comment 30 minutes spent with patient and additional 10 minutes spent reviewing his records
== END 2024-02-02 14:35 | disposition home or self-care (01) ==
PROVIDERS: Visit Provider Nurse Practitioner Family
DX: Z12.11 Encounter for screening for malignant neoplasm of colon (principal); Z01.818 Encounter for other preprocedural examination
CPT/HCPCS: 99203

== ENCOUNTER → 2024-02-02 13:18 | Outpatient (BNVA) | payer OTHER, SELFPAY | PROVIDERS: Visit Provider Nurse Practitioner Family ==

== ENCOUNTER 2024-02-04 09:36 | Outpatient (AMB) | payer OTHER, SELFPAY ==
--- NOTE | 2024-02-04 09:39 | MHC.PC.OV ---
Vital Signs 02/04/24 09:45 Height 5 ft 8 in Weight 230 lb 4 oz BMI 35.0 BP 118/78 Blood Pressure Location Rt brachial Position Sitting Respiration 16 Pulse 69 Pulse Source Pulse Oximeter Temp 97.9 F Temp Source Oral Pulse Oximetry (%) 99 Oxygen Delivery Method Room Air Intake Visit Reasons: COUGH UP BLOOD Intake Note: patient here c/o coughing up blood since yesturday morning. 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 He started coughing 3 weeks ago and was treated for strep pharyngitis. He was revaluated at an urgent care last week and tested negative for strep/covid/flu. His symptoms has significantly improved and he was able to return to work this week. His only symptoms at this time is fatigue and occasional cough. He denies fever, chills, body aches. No chest pain/discomfort. No sore throat at this time. [facility] Medical History (Updated 02/04/24 @ 10:07 by Silvestre Diaz CNP) Tick bites Pigmentary glaucoma ADHD, predominantly inattentive type Generalized anxiety disorder Depression Surgical History (Updated 02/02/24 @ 13:26 by EDDIE Choi) [place] teeth extracted History of root canal procedure Family History Maternal Grandfather Lung cancer Mother Basal cell carcinoma Other Mental health disorder Substance abuse Social History Household Members: Children Housing: House Alcohol intake: current Alcohol intake frequency: 0-2 drinks per day Alcohol type: beer Patient Tobacco Use Status: Former Tobacco user Tobacco use type: Cigarette and Smokeless Tobacco e-Cigarette/Vaping Use: Former Use Second Hand Smoke Exposure: No service: No Current occupational status: employed 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 How often do you have a drink containing alcohol?: 2-3 times a week 2. How many drinks containing alcohol do you have on a typical day when you are drinking?: 1 or 2 3. How often do you have six or more drinks on one occasion?: Less than monthly Total Score: 4 MARIA M-7 AMB Questionnaire MARIA M-7 Date MARIA M - 7 assessed: 10/21/23 Source: Developed by Drs. Davide Bauman, Lyn Turner, Darci Contreras and colleagues, with an educational gonzalo from [employer]. Review of Systems Const Details: Const Denies chills, Reports fatigue, Denies fever(s), Denies headache(s) and Denies weakness ENT Reports as per HPI Card Denies chest pain, Denies lightheadedness, Denies dyspnea and Denies other (Palpitations) Resp Denies cough, Denies dyspnea, Denies wheezing and Denies other ( shortness of breath) Skin/Breast Denies rash, Denies unusual bruising and Denies wounds Neuro Denies abnormal gait, Denies dizziness, Denies headache(s), Denies memory loss, Denies numbness, Denies Sensory deficit (Neuro), Denies tingling and Denies weakness Endo Denies cold intolerance, Reports fatigue, Denies heat intolerance, Denies polydipsia and Denies polyuria Aller/Immun Denies wheezing Physical exam (Primary Care) Vital Signs: Last Vital Signs Temp 97.9 F 02/04/24 09:45 Pulse 69 02/04/24 09:45 Resp 16 02/04/24 09:45 BP 118/78 02/04/24 09:45 Pulse Ox 99 02/04/24 09:45 Oxygen Delivery Method Room Air 02/04/24 09:45 BMI result Body Mass Index 35.0 Tobacco/Smoking Status: Tobacco use Status Tobacco use date assessed 02/04/24 02/04/24 09:48 Patient Tobacco Use Status Former Tobacco user 02/04/24 09:41 Tobacco use type Cigarette,Smokeless Tobacco 02/04/24 09:41 e-Cigarette/Vaping Use Former Use 02/04/24 09:41 Thrive Assessment: Date of Thrive Assessment Date Thrive assessed 10/21/23 02/04/24 09:41 Const Other: General: no acute distress and well developed Nutritional Appearance: well nourished Orientation/consciousness: patient oriented x3 HENMT Head is normocephalic Bilateral ear canal and TM are normal Nasal turbinates and oropharynx are pink and moist Sinuses are nontender with palpation No auricular or cervical lymphadenopathy Eyes General: appearance normal, both eyes and all related structures Pupils: Equal, round and reactive pupils present EOM: EOMs intact bilaterally Resp Effort & Inspection: normal respiratory effort Auscultation: clear to auscultation bilaterally Cardio Rate: regular rate Rhythm: regular rhythm Heart sounds: S1 normal heart sound present, S2 normal heart sound present, no gallops, no murmurs and no rubs Skin General: warm and dry. Normal skin color. Normal skin turgor Nails: normal Neuro General: patient oriented x3, gait normal and no focal neuro deficit Cranial nerves: Yes Equal, round and reactive pupils present Cognition (Neuro): normal cognition Gait exam (Neuro): Normal gait present Sensory Exam: No Sensory deficit (Neuro) Psych Appearance: grossly normal Affect: normal affect Attitude: cooperative Thought process: Normal thought process present Assessment and Plan Assessment & Plan (1) Cough: Code(s): R05.9 - Cough, unspecified Plan: Reports intermittent productive cough. He noticed blood in his sputum twice, yesterday and today. He started coughing 3 weeks ago. He was treated for strep pharyngitis. He had a negative strep, COVID, flu, and RSV test last week. His symptoms have significantly improved with residual intermittent cough and fatigue. Normal physical exam. Oropharynx within normal limit Likely airway irritation secondary to viral infection Chest x-ray ordered Adequate hydration and rest encouraged Follow-up with worsening or new symptoms Verbalized understanding and agreed with the plan Orders: Orders XR chest 2V Today R05.9 - Cough, unspecified Coding Level of Care Code Est Pt Level 3 (70276) Diagnoses Cough R05.9
[2024-02-04 09:45] VITALS: BP 118/78; PULSE 69; RESP 16; TEMP 36.6; O2SAT 99; BMI 35.0
== END 2024-02-04 10:09 | disposition home or self-care (01) ==
PROVIDERS: Visit Provider Nurse Practitioner Family
DX: R05.9 Cough, unspecified (principal)

== ENCOUNTER → 2024-02-04 09:36 | Outpatient (BNVA) | payer OTHER, SELFPAY | PROVIDERS: Visit Provider Nurse Practitioner Family | DX: R05.9 Cough, unspecified (principal) ==

== ENCOUNTER 2024-02-04 10:37 | Outpatient (REF) | payer OTHER, SELFPAY ==
--- NOTE | ~2024-02-04 | XR_ITS ---
EXAMINATION: XR CHEST CLINICAL INFORMATION: R05.9 - Cough, unspecified COMPARISON: X-ray dated May 11, 2022 TECHNIQUE: 2 views of the chest were obtained. FINDINGS: No consolidation pleural effusion or pneumothorax. Cardiomediastinal silhouette is normal in size. Osseous structures are intact. XR/XR chest 2V IMPRESSION: No acute airspace disease. Stable chest. Electronically signed by: Michael Nava MD 04/12/2024 03:13 PM [facility]
== END 2024-02-04 10:38 | disposition home or self-care (01) ==
LOC: HO.HMGCX 10:37
PROVIDERS: PCP Nurse Practitioner Family; Visit Provider Nurse Practitioner Family
DX: R05.9 Cough, unspecified (principal)
CPT/HCPCS: 71046

== ENCOUNTER → 2024-02-04 10:39 | Outpatient (BNV) | payer OTHER, SELFPAY | PROVIDERS: PCP Nurse Practitioner Family; Visit Provider Radiology Diagnostic Radiology | DX: R05.9 Cough, unspecified (principal) | CPT/HCPCS: 71046 ==

== ENCOUNTER 2024-05-03 12:12 | Outpatient (REF) | payer OTHER, SELFPAY ==
--- NOTE | ~2024-05-03 | XR_ITS ---
EXAMINATION: XR SACRUM AND COCCYX CLINICAL INFORMATION: Contusion of lower back and pelvis. COMPARISON: Lumbar spine radiographs dated 08/31/2022. TECHNIQUE: 2 views of the sacrum and 2 views of the coccyx were obtained. FINDINGS: There is grade 1 retrolisthesis of C2 in relation to C1 measuring 0.3 cm in AP dimension. Findings could represent an acute versus chronic posterior subluxation of the coccygeal vertebral body and correlation for focal tenderness is recommended. No fracture. No concerning lytic or blastic osseous lesion. Degenerative disc disease within the lower lumbar spine, similar when compared to the prior examination. Phleboliths within the pelvis. XR/XR sacrum coccyx min 2V IMPRESSION: 1. Grade 1 retrolisthesis of C2 in relation to C1 which could represent an acute versus chronic posterior subluxation of the coccygeal vertebral body and correlation for focal tenderness is recommended. 2. No acute fracture. 3. Degenerative disc disease within the lower lumbar spine. Electronically signed by: Dhaval Cerda MD 05/03/2024 04:37 PM [facility]
== END 2024-05-03 12:13 | disposition home or self-care (01) ==
LOC: HO.HMGCX 12:12
PROVIDERS: PCP Nurse Practitioner Family; Visit Provider Physician Assistant
DX: S30.0XXA Contusion of lower back and pelvis, initial encounter (principal)
CPT/HCPCS: 72220

== ENCOUNTER 2024-05-03 12:12 | Outpatient (AMB) | payer OTHER, SELFPAY ==
[2024-05-03 12:49] VITALS: BP 136/70; PULSE 64; O2SAT 98; BMI 35.4
--- NOTE | 2024-05-03 12:49 | AM.OFFWIN_ITS ---
Intake Vital Signs 05/03/24 12:49 Height 5 ft 8 in Weight 233 lb BMI 35.4 BP 136/70 Blood Pressure Location Lt brachial Position Sitting Pulse 64 Pulse Source Pulse Oximeter Pulse Oximetry (%) 98 Oxygen Delivery Method Room Air Intake Visit Reasons: EP rash on neck & back of neck ? shingles Intake Note: Patient here for possible shingles on left side of neck, he would also like to talk about tailbone pain after a fall about 2 weeks ago and is having issues sitting. Patient Tobacco Use Status: Former Tobacco user Allergies Seasonal Allergies Allergy (Intermediate, Verified 05/03/24 13:00) Itchy Eyes Do you need a note to return to daycare/school/sports/work: No HPI HPI Comments History of Present Illness Details History of Present Illness The patient is a 53-year-old male presenting with concerns about a suspected sacral or coccygeal injury and a suspected Herpes Zoster infection. Approximately two weeks ago, the patient experienced a fall while vacuuming steep stairs, resulting in a painful tailbone. He described the injury as a severe soreness similar to a really bad stubbed toe. Despite continuous use of ibuprofen, the pain has shown minimal improvement, leading to concern over a potential fracture. The patient also reports the onset of a painful rash about one week ago. The initial symptom was a burning, stabbing sensation at the back of the neck, with an area of pain described louie to a tingling soreness. Over the weekend, new rash lesions appeared localized to the neck region. The rash is suggestive of Herpes Zoster. The patient has received the first dose of the shingles vaccine and is scheduled for the second dose in May. Physical Exam General: Cooperative, healthy appearing, comfortable, no acute distress and well developed Orientation: Patient oriented x3 Limitations: No limitations Head: Normal to inspection Ears: Hearing grossly normal bilaterally Nose: Normal external nose present Face and sinus: Normal facial exam Eyes: Appearance normal, both eyes and all related structures Neck: Normal visual inspection and Yes full ROM Respiratory: Normal respiratory effort and able to speak in complete sentences. Clear to auscultation bilaterally Cardiovascular: Regular rate and rhythm. Normal S1 and S2 Skin: C4 dermatome has some vesicles with erythematous base, most are popped, no warmth or signs of infetion noted Neuro: Patient oriented x3 Extremities: Normal to inspection [facility] Medical History (Updated 05/03/24 @ 13:28 by Rachelle Crawford PA-C) Tick bites Pigmentary glaucoma ADHD, predominantly inattentive type Generalized anxiety disorder Depression Surgical History (Updated 02/02/24 @ 13:26 by EDDIE Choi) [employer] teeth extracted History of root canal procedure Family History Maternal Grandfather Lung cancer Mother Basal cell carcinoma Other Mental health disorder Substance abuse Social History Household Members: Children Housing: House Alcohol intake: current Alcohol intake frequency: 0-2 drinks per day Alcohol type: beer Patient Tobacco Use Status: Former Tobacco user Tobacco use type: Cigarette and Smokeless Tobacco e-Cigarette/Vaping Use: Former Use Second Hand Smoke Exposure: No service: No Current occupational status: employed 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 [employer] Cognitive needs: No Hearing needs: Yes Vision needs: Yes Review of Systems Const All systems reviewed & are unremarkable except as noted in HPI and below Physical Exam Vital Signs: Last Vital Signs Pulse 64 05/03/24 12:49 BP 136/70 05/03/24 12:49 Pulse Ox 98 05/03/24 12:49 Oxygen Delivery Method Room Air 05/03/24 12:49 BMI result Body Mass Index 35.4 Assessment & Plan Assessment & Plan (1) Coccyx contusion: Code(s): S30.0XXA - Contusion of lower back and pelvis, initial encounter Qualifiers: Encounter type: initial encounter Qualified Code(s): S30.0XXA - Contusion of lower back and pelvis, initial encounter Plan: - Prescribe valacyclovir 1000 mg to be taken three times daily for seven days for Herpes Zoster. - Initiate gabapentin 100 mg for neuralgia related to the Herpes Zoster, with instructions to start with a single dose to assess tolerance. - Advise the patient regarding the possibility of sedative effects with gabapentin; the patient should trial the medication on a night at home with supervision. - Recommend an x-ray of the sacrum and coccyx to assess for potential fractures due to unresolved tailbone pain. The patient is advised on the location for obtaining imaging. - Instruct the patient on the management of the shingles rash, including con sideration of oatmeal baths for soothing the skin, although limited effect is expected compared to systemic management. - Ensure follow-up communication with the patient regarding x-ray results. - Send prescriptions to the designated pharmacy for the patient. Patient was informed and verbally consented to the use of an ambient scribe for clinic note documentation during this visit. (2) Herpes zoster: Code(s): B02.9 - Zoster without complications Qualifiers: Herpes zoster complications: without complications Qualified Code(s): B02.9 - Zoster without complications Plan: as above Orders: Orders XR sacrum coccyx min 2V Today S30.0XXA - Contusion of lower back and pelvis, initial encounter Medications: New valacyclovir 1,000 mg PO Q8H 21 tabs 0RF 7 days gabapentin 100 mg PO TID PRN 20 caps 0RF pain Coding Level of Care Code Est Pt Level 4 (84408) Diagnoses Contusion of coccyx, initial encounter S30.0XXA Encounter type: initial encounter Herpes zoster without complication B02.9 Herpes zoster complications: without complications
== END 2024-05-03 13:38 | disposition home or self-care (01) ==
PROVIDERS: PCP Nurse Practitioner Family; Visit Provider Physician Assistant
DX: S30.0XXA Contusion of lower back and pelvis, initial encounter (principal); B02.9 Zoster without complications

== ENCOUNTER 2024-06-01 10:51 | Outpatient (AMB) | payer OTHER, SELFPAY ==
[2024-06-01 10:57] VITALS: BP 132/90; PULSE 65; O2SAT 98; BMI 34.9
--- NOTE | 2024-06-01 10:57 | A.OFFVIS_ITS ---
Vital Signs 06/01/24 10:57 Height 5 ft 8 in Weight 229 lb 6 oz BMI 34.9 BP 132/90 H Blood Pressure Location Rt brachial Position Sitting Pulse 65 Pulse Source Pulse Oximeter Pulse Oximetry (%) 98 Oxygen Delivery Method Room Air Intake Visit Reasons: Follow up Intake Note: patient states needs new machine and supplies as his machine is more then 10 years old. Allergies Seasonal Allergies Allergy (Intermediate, Verified 06/01/24 11:00) Itchy Eyes Medication List - Last Reconciled 06/01/24 by AMBREEN Muse bisacodyl (Dulcolax (bisacodyl)) 20 mg (4 x 5 mg) PO ONCE 1 day gabapentin 100 mg PO TID PRN lisdexamfetamine (Vyvanse) 60 mg PO ONCE naltrexone 25 mg PO DAILY PRN polyethylene glycol 3350 (Miralax) 238 grams PO ONCE trazodone 100 mg PO BEDTIME valacyclovir 1,000 mg PO Q8H 7 days venlafaxine ER 75 mg PO DAILY HPI Comments Details: 53-yr-old male presents for f/u of COLBY. Unfortunately, patient has not had follow-up home sleep study as he states he did not receive a call. Review of chart notes shows documentation that staff had attempted to call him, however patient notes that many times offices in people dial his number incorrectly. Patient reports he is still in need of new CPAP supplies. Patient reports he was diagnosed with sleep apnea approx 6-7 yrs ago in [place]. He states he underwent HST as he was having fatigue, very loud snoring, gasping, apneas, sleep difficulties. He states he was diagnosed w/ moderate COLBY. He was started on a ResMed APAP device. He uses his APAP nightly, sleeps well and feels well rested with use. 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 The machine does show his residual events are < 2/hr but does show poor seal at times. He has since moved to [facility], and no longer has a PAP resp supplier. Has been buying his PAP supplies online, however he can no longer find filter replacements for his machine. He has been having to wash and repeatedly resue his old PAP filters. He can have vivid dreams. He denies RLS, GERD, nocturia, am headaches. He does not recall who his previous respiratory supplier. He does not have a copy of his last HST. [facility] Medical History Tick bites Pigmentary glaucoma ADHD, predominantly inattentive type Generalized anxiety disorder Depression Surgical History [place] teeth extracted History of root canal procedure Family History Maternal Grandfather Lung cancer Mother Basal cell carcinoma Other Mental health disorder Substance abuse Social History Household Members: Children Housing: House Alcohol intake: current Alcohol intake frequency: 0-2 drinks per day Alcohol type: beer Patient Tobacco Use Status: Former Tobacco user Tobacco use type: Cigarette and Smokeless Tobacco e-Cigarette/Vaping Use: Former Use Second Hand Smoke Exposure: No service: No Current occupational status: employed 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 Cognitive needs: No Hearing needs: Yes Vision needs: Yes Physical Exam Vital Signs: Last Vital Signs Pulse 65 06/01/24 10:57 BP 132/90 H 06/01/24 10:57 Pulse Ox 98 06/01/24 10:57 Oxygen Delivery Method Room Air 06/01/24 10:57 BMI result Body Mass Index 34.9 Const General: no acute distress Orientation/consciousness: patient oriented x3 HEENT Other: Mallampati stage 3 Resp Effort & Inspection: normal respiratory effort and able to speak in complete sentences Neuro General: patient oriented x3 Psych Mental Status: mental status grossly normal Speech and movement: Clear speech present Attitude: cooperative Assessment & Plan Assessment & Plan (1) COLBY (obstructive sleep apnea): Code(s): G47.33 - Obstructive sleep apnea (adult) (pediatric) Category: Medical Plan Pt is again advised to undergo f/u HST sleep study to assess status of sleep apnea, as pt does not have previous sleep study reports. Patient will update his contact information today. Advised to notify us if he does not receive an appointment for HST in next 2-3 weeks. In the meantime, continue APAP nightly, as pt has good clinical effect from use. Upon review of the HST, consider request for new PAP device w/ remote compliance monitoring capabilities. Will f/u with pt after study to discuss results and appropriate treatment options. Pt to call with any worsening concerns or questions. Orders: Orders RT home sleep study Today G47.33 - Obstructive sleep apnea (adult) (pediatric) Coding Level of Care Code Est Pt Level 3 (85966) Diagnoses COLBY (obstructive sleep apnea) G47.33
== END 2024-06-01 11:21 | disposition home or self-care (01) ==
PROVIDERS: Visit Provider Nurse Practitioner Family
DX: G47.33 Obstructive sleep apnea (adult) (pediatric) (principal)
CPT/HCPCS: 99213

== ENCOUNTER → 2024-06-01 10:51 | Outpatient (BNVA) | payer OTHER, SELFPAY | PROVIDERS: Visit Provider Nurse Practitioner Family ==

== ENCOUNTER 2024-06-03 07:09 | Day surgery (SDC) | payer OTHER, SELFPAY ==
--- NOTE | 2024-06-01 13:59 | HO.ANESPROP2 ---
Documented by User: Claudia Aguillon NP 06/01/24 13:59 HPI - Anesthesia Eval Consult details Narrative: 53yo M for Upper Endoscopy and Colonoscopy PMFSH Active Problems Active Problems: All Active Problems Herpes zoster (Acute) Coccyx contusion (Acute) Cough (Acute) Acute upper respiratory infection (Acute) Vaccine counseling (Acute) Obesity (BMI 30-39.9) (Acute) Alcohol dependence (Acute) Laboratory tests ordered as part of a complete physical exam (CPE) (Acute) COVID-19 (Acute) Raynauds disease (Acute) Varicose veins of right lower extremity with inflammation (Acute) Elevated fasting glucose (Acute) Low vitamin D level (Acute) Adult general medical exam (Acute) Phlebolith (Acute) Screening for colon cancer (Acute) Low back pain (Acute) Chronic pain syndrome (Acute) Facet arthropathy, cervical (Acute) Degeneration of intervertebral disc of cervical spine without disc herniation (Acute) Spondylosis of cervical spine (Acute) Rosacea (Acute) Skin lesion (Acute) COLBY (obstructive sleep apnea) (Acute) Fatigue (Acute) Vitamin D deficiency (Acute) Hyperlipidemia (Acute) Annual physical exam (Acute) Pigmentary glaucoma (Acute) Anemia (Acute) Screening for prostate cancer (Acute) Disc disease, degenerative, cervical (Acute) 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 (Acute) Scalp laceration (Acute) ADHD, predominantly inattentive type (Acute) Generalized anxiety disorder (Acute) Depression (Acute) Encounter to establish care (Acute) Past Medical History Medical History Tick bites Pigmentary glaucoma ADHD, predominantly inattentive type Generalized anxiety disorder Depression Family History Family History Maternal Grandfather Lung cancer Mother Basal cell carcinoma Other Mental health disorder Substance abuse Surgical History Surgical History [place] teeth extracted History of root canal procedure Social History Social History (Updated 06/03/24 @ 08:41 by Astrid Johnson MD) Household Members: Children Housing: House Alcohol intake: current Alcohol intake frequency: 0-2 drinks per day Alcohol type: beer Patient Tobacco Use Status: Former Tobacco user Tobacco use type: Cigarette and Smokeless Tobacco e-Cigarette/Vaping Use: Former Use Second Hand Smoke Exposure: No Substance Use Type: Marijuana service: No Current occupational status: employed 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 Cognitive needs: No Hearing needs: Yes Vision needs: Yes Meds Allergies Allergy/AdvReac Type Severity Reaction Status Date / Time Seasonal Allergies Allergy Intermediate Itchy Eyes Verified 06/01/24 11:00 Home Medications ?Medication ?Instructions ?Recorded ?Confirmed ?Last Taken ?Type naltrexone 50 mg tablet 25 mg PO DAILY PRN Pain (Scale 02/02/24 06/03/24 06/01/24 History Score 4-6) lisdexamfetamine 30 mg capsule 60 mg PO ONCE 05/03/24 06/03/24 06/01/24 History (Vyvanse) trazodone 50 mg tablet 100 mg PO BEDTIME 05/03/24 06/03/24 06/01/24 History venlafaxine 37.5 mg 75 mg PO DAILY 05/03/24 06/03/24 06/01/24 History capsule,extended release 24 hr Assessment and Plan Assessment Anesthesia Assessment: Chart Reviewed Documented by User: Astrid Johnson MD 06/03/24 08:43 PMFSH Active Problems Active Problems: All Active Problems Herpes zoster (Acute) Coccyx contusion (Acute) Cough (Acute) Acute upper respiratory infection (Acute) Vaccine counseling (Acute) Obesity (BMI 30-39.9) (Acute) Alcohol dependence (Acute) Laboratory tests ordered as part of a complete physical exam (CPE) (Acute) COVID-19 (Acute) Raynauds disease (Acute) Varicose veins of right lower extremity with inflammation (Acute) Elevated fasting glucose (Acute) Low vitamin D level (Acute) Adult general medical exam (Acute) Phlebolith (Acute) Screening for colon cancer (Acute) Low back pain (Acute) Chronic pain syndrome (Acute) Facet arthropathy, cervical (Acute) Degeneration of intervertebral disc of cervical spine without disc herniation (Acute) Spondylosis of cervical spine (Acute) Rosacea (Acute) Skin lesion (Acute) COLBY (obstructive sleep apnea) (Acute).Uses CPAP machine Fatigue (Acute) Vitamin D deficiency (Acute) Hyperlipidemia (Acute) Annual physical exam (Acute) Pigmentary glaucoma (Acute) Anemia (Acute) Screening for prostate cancer (Acute) Disc disease, degenerative, cervical (Acute) 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 (Acute) Scalp laceration (Acute) ADHD, predominantly inattentive type (Acute) Generalized anxiety disorder (Acute) Depression (Acute) Encounter to establish care (Acute) Past Medical History Medical History Tick bites Pigmentary glaucoma ADHD, predominantly inattentive type Generalized anxiety disorder Depression Family History Family History Maternal Grandfather Lung cancer Mother Basal cell carcinoma Other Mental health disorder Substance abuse Family history of problems with anesthesia: No Surgical History Surgical History [place] teeth extracted History of root canal procedure History of Problems with Anesthesia: No Social History Social History (Updated 06/03/24 @ 08:41 by Astrid Johnson MD) Household Members: Children Housing: House Alcohol intake: current Alcohol intake frequency: 0-2 drinks per day Alcohol type: beer Patient Tobacco Use Status: Former Tobacco user Tobacco use type: Cigarette and Smokeless Tobacco e-Cigarette/Vaping Use: Former Use Second Hand Smoke Exposure: No Substance Use Type: Marijuana service: No Current occupational status: employed 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 Cognitive needs: No Hearing needs: Yes Vision needs: Yes Meds Allergies Allergy/AdvReac Type Severity Reaction Status Date / Time Seasonal Allergies Allergy Intermediate Itchy Eyes Verified 06/01/24 11:00 Home Medications ?Medication ?Instructions ?Recorded ?Confirmed ?Last Taken ?Type naltrexone 50 mg tablet 25 mg PO DAILY PRN Pain (Scale 02/02/24 06/03/24 06/01/24 History Score 4-6) lisdexamfetamine 30 mg capsule 60 mg PO ONCE 05/03/24 06/03/24 06/01/24 History (Vyvanse) trazodone 50 mg tablet 100 mg PO BEDTIME 05/03/24 06/03/24 06/01/24 History venlafaxine 37.5 mg 75 mg PO DAILY 05/03/24 06/03/24 06/01/24 History capsule,extended release 24 hr Exam Height,Weight and Vital Signs: Height 5 ft 8 in Weight 105.233 kg Vital Signs Temp Pulse Resp BP Pulse Ox O2 Del Method 06/03/24 07:26 98.2 F 66 20 120/93 H 98 Room Air Airway Mallampati Class: III (Thick neck) TM Dist: >3cm Neck ROM: Full Loose/Missing/Broken Teeth: Yes ([place] teeth extracted) Heart: RRR Lungs: CTAB Assessment and Plan Assessment Anesthesia Assessment: Anesthesia Plan Discussed and Chart Reviewed Final Anesthetic Review Family History of Problems with Anesthesia: No History of Problems with Anesthesia: No NPO: Yes ASA Class: III Final Preanesthetic Review: No Changes in Pt Med Stat, Meds/Allgs Chart Reviewed, Consent Obtained/Reviewed and Anes Risks/Benef Reviewed Patient Risk: Intermediate Procedure Risk: Low Assessment/Block/Sedation in SS: Assess/Block/Sedation-SS Anesthetic Plan Anesthetic Plan: TIVA Disposition: Standard PACU
[2024-06-02 05:43] VITALS: BMI 35.3
[2024-06-03 07:26] VITALS: BP 120/93; PULSE 66; RESP 20; TEMP 36.8; O2SAT 98
[2024-06-03] MEDS: Lactated Ringers 1,000 ML 100 ML IVCONT (07:46)
--- NOTE | 2024-06-03 08:03 | MHC.SHP ---
Pre-Procedural Eval Section A - 24 Hr Update-Section A only Date of Service: 06/03/24 Section B - Complete if H&P > 30 days Chief Complaint: GERD, screening Details of Present Illness: Tick bites Pigmentary glaucoma ADHD, predominantly inattentive type Generalized anxiety disorder Depression Surgical History (Updated 02/02/24 @ 13:26 by Delroy Michaud [facility]) [place] teeth extracted History of root canal procedure Present Medications: see Short Stay Collaborative assessment Allergies: Allergies Allergy/AdvReac Type Severity Reaction Status Date / Time Seasonal Allergies Allergy Intermediate Itchy Eyes Verified 06/01/24 11:00 Review of Systems Review of Systems Comment: Ten point ROS negative Exam Exam Comment: Gen appear: No acute distress HEENT: no icterus Chest: No overt resp distress Abd: soft, nontender, nondistended Psych: Stable affect, answering questions appropriately Neuro: A/Ox3 noted to move all extremities spontaneously Ext: no peripheral edema Plan Diagnosis/Plan: Unchanged I have reviewed the history and physical and performed a pertinent physical examination on my patient. No changes have occurred unless specified. Time Spent With Patient Time: Total time managing care of this patient today ____ minutes.
[2024-06-03 09:31] VITALS: BP 94/50; PULSE 65; RESP 16; TEMP 36.5; O2SAT 97
--- NOTE | 2024-06-03 09:36 | P.OPN-COLO_ITS ---
Colonoscopy Operative Note Operative Note Date of Service: 06/03/24 Narrative: Procedure: Upper endoscopy and colonoscopy Indication: GERD, screening Endoscopist: Chiquis Greene MD Anesthesia Provider: Sophia Santoro CRNA Anesthesia type: MAC Instrument: [id number] and [id number] EGD Procedure:?? The procedure, indications, preparation and potential complications were reviewed with the patient, who indicated understanding and gave written informed consent to proceed. The endoscope was introduced through the mouth, and advanced to the 2nd part of the duodenum. The mucosa was carefully examined on slow withdrawal of the endoscope. The patient tolerated the procedure well. There were no immediate complications.? EGD Findings:? * Esophagus:? Normal esophageal mucosa was noted. The Z-line was at 32 cm. There was a medium-sized hiatal hernia with the diaphragmatic pinch at 36 cm. Cold forceps biopsies were taken from GE junction. * Stomach:? Erythema and erosions in the antrum. Retroflexion was performed in the cardia that showed Hill grade III hiatal hernia. Random cold forceps biopsies were taken from the stomach. * Duodenum:? Mild erythema and edema in the duodenal bulb. Cold forceps biopsies were taken from the duodenal bulb and 2nd portion of the duodenum to rule out celiac sprue. Colonoscopy Procedure:? The patient was then turned for the colonoscopy. A digital rectal exam was performed which was normal.? A distal attachment cap was affixed to the tip of the scope and the colonoscope was then inserted through the anus and advanced through the colon and advanced to the cecum at 75 cm.? Appendiceal orifice and ileocecal valve were identified. Mucosa was carefully examined under high definition white light as the instrument was slowly withdrawn in a retrograde panoramic fashion. Retroflexion was performed in rectum. The procedure was not difficult. The quality of the prep was BBPS: 2+1+2 = inadequate Withdrawal time 12 minutes Limitations: No limitations Findings: Mucosa: Semi solid stool noted throughout the R colon. We were able to visualize the cecal pouch after extensive flushing but the remaining R colon could not be evaluated for polyps. Protruding lesions: * Small internal hemorrhoids without stigmata of recent bleeding. Impression: 1. Normal esophagus (biopsy) 2. Hiatal hernia 3. Gastritis (biopsy) 4. Duodenitis (biopsy) 5. Poor prep 6. Internal hemorrhoids Recommendations:?? * Follow-up path results * Start omeprazole 20 mg once daily * Avoid NSAIDs * H Pylori treatment if biopsies + * Repeat colonoscopy in 1- 2 years due to poor prep
[2024-06-03 09:46] VITALS: BP 109/66; PULSE 56; RESP 16; O2SAT 100
[2024-06-03 10:03] VITALS: TEMP 36.6
== END 2024-06-03 10:23 | disposition home or self-care (01) ==
PROVIDERS: PCP Nurse Practitioner Family; Visit Provider Internal Medicine
PROC: (CPT 45378; principal; 2024-06-03 08:30)
DX: Z12.11 Encounter for screening for malignant neoplasm of colon (principal); K64.8 Other hemorrhoids; K21.9 Gastro-esophageal reflux disease without esophagitis; K29.50 Unspecified chronic gastritis without bleeding; K29.80 Duodenitis without bleeding; K25.9 Gastric ulcer, unspecified as acute or chronic, without hemorrhage or perforation; K44.9 Diaphragmatic hernia without obstruction or gangrene; H40.139 Pigmentary glaucoma, unspecified eye; F32.A Depression, unspecified; F90.0 Attention-deficit hyperactivity disorder, predominantly inattentive type; F41.1 Generalized anxiety disorder; F10.11 Alcohol abuse, in remission; Z79.899 Other long term (current) drug therapy; Z87.891 Personal history of nicotine dependence
CPT/HCPCS: 45378; 43239; 88305; 88313; 88342; J2003; J2250; J2704

== ENCOUNTER → 2024-06-03 07:09 | Outpatient (BNV) | payer OTHER, SELFPAY | PROVIDERS: PCP Nurse Practitioner Family; Visit Provider Internal Medicine | DX: Z12.11 Encounter for screening for malignant neoplasm of colon (principal); K64.8 Other hemorrhoids; Z91.199 Patient's noncompliance with other medical treatment and regimen due to unspecified reason; K21.9 Gastro-esophageal reflux disease without esophagitis; K29.70 Gastritis, unspecified, without bleeding; K29.80 Duodenitis without bleeding | CPT/HCPCS: 43239; 45378 ==

== ENCOUNTER 2024-06-21 14:35 | Outpatient (AMB) | payer OTHER, SELFPAY ==
--- NOTE | 2024-06-21 14:39 | MHC.OFFVIS ---
Vital Signs 06/21/24 14:54 Height 5 ft 8 in Weight 231 lb 0.711 oz BMI 35.1 BP 140/76 H Blood Pressure Location Rt brachial Position Sitting Pulse 56 Pulse Source Pulse Oximeter Pulse Oximetry (%) 100 Oxygen Delivery Method Room Air Intake Visit Reasons: s/p FUV. Discuss H Pylori tx Intake Note: ESTABLISHED PATIENT for s/p FUV. Discuss H Pylori Tx Chief Complaint; Mild to moderate GERD. Pt was unable to fill omeprazole due to insurance denial. Pt still feeling OK despite this. No additional GI sx reported. Freelance Translator Required: No Accompanied by: Self / Same As Patient Allergies Seasonal Allergies Allergy (Intermediate, Verified 06/21/24 14:42) Itchy Eyes HPI HPI s/p FUV. Discuss H Pylori tx: Details: LAST VISIT: Screening for colon cancer Plan Patient denies any GI, cardiac or respiratory symptoms.? Denies any issues with anesthesia in the past.? Denies any history of sleep apnea.? No history infectious diseases in the past or present.? Not on any anticoagulation therapy.? No family or personal history of colon cancer or polyps.? Patient denies melena, hematochezia, unintentional weight loss or ribbon like stools.? Discussed at length the pre-procedure,? prep, diet & medications as well as what to expect prior, during and after the procedure.?? Stressed the importance of good bowel prep.? Recommended the use of Vaseline or Calmoseptine OTC & baby wipes with bowel movements to promote comfort.? ?Patient verbalizes understanding and agrees to plan of care.? She was given the opportunity to ask questions and all questions answered.? We will see her after the procedure.? Medications New bisacodyl (Dulcolax (bisacodyl)) take 4 tabs at noon the day before your colonoscopy 20 mg (4 x 5 mg) PO ONCE 1 day 4 tabs 0RF Z12.11 polyethylene glycol 3350 (Miralax) As directed by gastroenterology department at [facility] 238 grams PO ONCE 238 grams 0RF Z12.11 UPPER ENDOSCOPY AND COLONOSCOPY EGD Findings:? Esophagus:? Normal esophageal mucosa was noted. The Z-line was at 32 cm. There was a medium-sized hiatal hernia with the diaphragmatic pinch at 36 cm. Cold forceps biopsies were taken from GE junction. Stomach:? Erythema and erosions in the antrum. Retroflexion was performed in the cardia that showed Hill grade III hiatal hernia. Random cold forceps biopsies were taken from the stomach. Duodenum:? Mild erythema and edema in the duodenal bulb. Cold forceps biopsies were taken from the duodenal bulb and 2nd portion of the duodenum to rule out celiac sprue. Colonoscopy Procedure:? The patient was then turned for the colonoscopy. A digital rectal exam was performed which was normal.? A distal attachment cap was affixed to the tip of the scope and the colonoscope was then inserted through the anus and advanced through the colon and advanced to the cecum at 75 cm.? Appendiceal orifice and ileocecal valve were identified. Mucosa was carefully examined under high definition white light as the instrument was slowly withdrawn in a retrograde panoramic fashion. Retroflexion was performed in rectum. The procedure was not difficult. The quality of the prep was BBPS: 2+1+2 = inadequate Withdrawal time 12 minutes Limitations: No limitations Colonoscopy Findings: Mucosa: Semi solid stool noted throughout the R colon. We were able to visualize the cecal pouch after extensive flushing but the remaining R colon could not be evaluated for polyps. Protruding lesions: Small internal hemorrhoids without stigmata of recent bleeding.Impression: 1. Normal esophagus (biopsy) 2. Hiatal hernia 3. Gastritis (biopsy) 4. Duodenitis (biopsy) 5. Poor prep 6. Internal hemorrhoids Recommendations:?? Follow-up path results Start omeprazole 20 mg once daily Avoid NSAIDs H Pylori treatment if biopsies + Repeat colonoscopy in 1- 2 years due to poor prep PATHOLOGY RESULTS Diagnosis A. Duodenum, biopsy: Duodenal mucosa within normal limits. B. Stomach, abnormal mucosa, biopsy: - Oxyntic mucosa with mild chronic inactive inflammation. - Rare forms suspicious for H. pylori identified. C. Stomach, random, biopsy: Oxyntic mucosa with mild chronic inactive inflammation; no Helicobacter organisms seen. D. GE junction, biopsy: - Cardiofundic-type mucosa with mild chronic, focally active, inflammation and focal erosion; no intestinal metaplasia seen. - Squamous mucosa within normal limits TODAY'S VISIT Patient is here today for follow-up and to discuss upper endoscopy and colonoscopy results. Patient denies any ill effects from the prep, anesthesia or procedure itself. Patient had suboptimal prep and will need to repeat colonoscopy in 1 year. Patient admits to eating breakfast morning day before the procedure. No polyps found, however right side of colon unable to evaluate due to suboptimal prep. Patient denies melena, hematochezia, unintentional weight loss or ribbon like stools. Reports that he is moving his bowels without any issues. Upper endoscopy showed mild inactive inflammation with H pylori no esophagitis. Patient was given script for omeprazole, unable to fill the prescription as the insurance did not cover it. Patient reports occasional acid reflux depending on what he eats. [facility] Medical History (Updated 06/21/24 @ 15:25 by Jaki Velasquez [facility]) GERD (gastroesophageal reflux disease) Helicobacter pylori (H. pylori) Tick bites Pigmentary glaucoma ADHD, predominantly inattentive type Generalized anxiety disorder Depression Surgical History [place] teeth extracted History of root canal procedure Family History Maternal Grandfather Lung cancer Mother Basal cell carcinoma Other Mental health disorder Substance abuse Social History Household Members: Children Housing: House Alcohol intake: current Alcohol intake frequency: 0-2 drinks per day Alcohol type: beer Patient Tobacco Use Status: Former Tobacco user Tobacco use type: Cigarette and Smokeless Tobacco e-Cigarette/Vaping Use: Former Use Second Hand Smoke Exposure: No Substance Use Type: Marijuana service: No Current occupational status: employed 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 Cognitive needs: No Hearing needs: Yes Vision needs: Yes Review of Systems Const Denies weight gain and Denies weight loss ENT Reports no additional complaints, Denies dysphagia and Denies odynophagia Card Reports no additional complaints Resp Reports no additional complaints GI Denies abdominal pain, Denies belching, Denies melena, Denies bloating, Denies change in bowel habits, Denies dysphagia, Denies excessive flatus, Denies dyspepsia, Reports heartburn (Occasional), Denies diarrhea, Denies loose stools, Denies nausea, Denies odynophagia and Denies vomiting Reports no additional complaints Musc Reports no additional complaints Neuro Reports no additional complaints Psych Reports no additional complaints Endo Reports no additional complaints Physical Exam Const General: healthy appearing and no acute distress Nutritional Appearance: obese Orientation/consciousness: patient oriented x3 Resp Effort & Inspection: normal respiratory effort, able to speak in complete sentences, no tracheal deviation and symmetric chest movement Auscultation: clear to auscultation bilaterally Cardio Rate: regular rate GI Inspection: Yes normal to inspection and No distended Palpation (GI): Soft to palpation, not firm, nontender and No hepatosplenomegaly present Auscultation: normal bowel sounds General: Yes no CVA tenderness Back/Spine/Pelvis Back: no CVA tenderness Skin General skin exam: elasticity normal, turgor normal and dry skin Neuro General: patient oriented x3 Psych Appearance: grossly normal Mental Status: mental status grossly normal Assessment & Plan Assessment & Plan (1) Helicobacter pylori (H. pylori): Code(s): A04.8 - Other specified bacterial intestinal infections Category: Medical (2) GERD (gastroesophageal reflux disease): Code(s): K21.9 - Gastro-esophageal reflux disease without esophagitis Category: Medical Qualifiers: Esophagitis presence: esophagitis presence not specified Qualified Code(s): K21.9 - Gastro-esophageal reflux disease without esophagitis (3) Status post colonoscopy: Code(s): Z98.890 - Other specified postprocedural states Plan Patient will start treatment for H pylori for 2 weeks. Avoid alcohol and vinegar products. Patient will start pantoprazole daily. Avoid dietary triggers and late night snacking. Staying upright for minimum 3 hours after meals discussed with patient. Patient will be rescheduled for another colonoscopy at some point. Will follow-up in 6 months. Patient will call our office if he will have any GI concerning symptoms. Patient is agreeable to this plan and verbalizes understanding of instructions. He was given the opportunity to ask questions and all questions answered. Thank you for allowing me to participate in his care Medications: New pantoprazole take one tablet half an hour before breakfast 40 mg PO DAILY 30 tabs 2RF K21.9 - Gastro-esophageal reflux disease without esophagitis bismuth subsalicylate 2 tabs PO QID 14 days 112 tabs 0RF A04.8 - Other specified bacterial intestinal infections metronidazole 1,000 mg (2 x 500 mg) PO BID 56 tabs 0RF A04.8 - Other specified bacterial intestinal infections doxycycline hyclate 100 mg PO BID 14 days 28 caps 0RF Discontinued omeprazole Discontinued Reason: Doctor's Order 20 mg (2 x 10 mg) PO DAILY 90 days 180 caps 0RF Coding Level of Care Code Est Pt Level 4 (29762) Complex EM visit Add On G2211 Diagnoses Helicobacter pylori (H. pylori) A04.8 Gastroesophageal reflux disease, unspecified whether esophagitis present K21.9 Esophagitis presence: esophagitis presence not specified Status post colonoscopy Z98.890 Time Spent (min) 35 Comment 25 minutes spent with patient and additional 10 minutes spent reviewing his records
[2024-06-21 14:54] VITALS: BP 140/76; PULSE 56; O2SAT 100; BMI 35.1
== END 2024-06-21 15:43 | disposition home or self-care (01) ==
PROVIDERS: PCP Nurse Practitioner Family; Visit Provider Nurse Practitioner Family
DX: A04.8 Other specified bacterial intestinal infections (principal); K21.9 Gastro-esophageal reflux disease without esophagitis; Z98.890 Other specified postprocedural states
CPT/HCPCS: 99214

== ENCOUNTER → 2024-07-15 10:53 | Outpatient (REF) | payer OTHER, SELFPAY | LOC: HO.SL 10:53 | PROVIDERS: PCP Nurse Practitioner Family; Visit Provider Nurse Practitioner Family | DX: G47.33 Obstructive sleep apnea (adult) (pediatric) (principal) | CPT/HCPCS: 95806 ==

== ENCOUNTER → 2024-07-15 11:03 | Outpatient (BNV) | payer OTHER, SELFPAY | PROVIDERS: PCP Nurse Practitioner Family; Visit Provider Psychiatry & Neurology Neurology | DX: G47.33 Obstructive sleep apnea (adult) (pediatric) (principal) | CPT/HCPCS: 95806 ==

== ENCOUNTER 2024-10-07 16:01 | Outpatient (AMB) | payer OTHER, SELFPAY ==
[2024-10-07 16:05] VITALS: BP 130/70; PULSE 93; TEMP 36.7; O2SAT 96; BMI 35.0
--- NOTE | 2024-10-07 16:05 | MHC.OFFWIV ---
Intake Vital Signs 10/07/24 16:05 Height 5 ft 8 in Weight 230 lb BMI 35.0 BP 130/70 Blood Pressure Location Lt brachial Position Sitting Pulse 93 Pulse Source Pulse Oximeter Temp 98.0 F Temp Source Oral Pulse Oximetry (%) 96 Oxygen Delivery Method Room Air Intake Visit Reasons: EP-private part tick bite Patient Tobacco Use Status: Former Tobacco user Allergies Seasonal Allergies Allergy (Intermediate, Verified 10/07/24 16:05) Itchy Eyes Do you need a note to return to daycare/school/sports/work: Yes HPI HPI Comments History of Present Illness Details History of Present Illness The patient is a 54-year-old male presenting with symptoms following a tick bite, including lymphadenopathy and sinus congestion. Three weeks ago, he noticed irritation near the perineum, which he initially thought was chafing from outdoor activities. The irritation worsened, and he suspected a tick bite, attempting to scratch at it during a shower. He later experienced diarrhea and jaw pain, initially thought to be TMJ, but his dentist identified a swollen lymph node. He reports no bullseye rashes and occasional fatigue and shortness of breath without fever. Sinus congestion and ear pain, particularly in the left ear, are also reported, with discomfort when cleaning the ear. The patient has a history of tick bites and is concerned about Lyme disease, especially after his dog was diagnosed with it. He seeks evaluation for any residual tick parts under the skin and consideration for Lyme testing. He denies fever, chills, CP, SOB, abd pain, n/v/d, joint pain, or rashes. Physical Exam General: Cooperative, healthy appearing, comfortable, no acute distress and well developed Orientation: Patient oriented x3 Limitations: No limitations Head: Normal to inspection Ears: Hearing grossly normal bilaterally, left ear with congestion and some pain, tympanic membrane normal, no effusion, no redness Nose: Normal external nose present Face and sinus: Normal facial exam, some sinus pressure or pain Eyes: Appearance normal, both eyes and all related structures Neck: Normal visual inspection and Yes full ROM, swollen lymph node noted on the left lateral neck Respiratory: Normal respiratory effort and able to speak in complete sentences. Clear to auscultation bilaterally Cardiovascular: Regular rate and rhythm. Normal S1 and S2 GI: Normal to inspection. Soft to palpation and nontender Skin: No rashes or lesions noted, tick bite observed with crust, no erythema, no induration, no signs of abscess in the perineum Neuro: Patient oriented x3 Extremities: Normal to inspection Patient was informed and verbally consented to the use of an ambient scribe for clinic note documentation during this visit. [facility] Medical History (Updated 06/21/24 @ 15:[address] [facility]) GERD (gastroesophageal reflux disease) Helicobacter pylori (H. pylori) Tick bites Pigmentary glaucoma ADHD, predominantly inattentive type Generalized anxiety disorder Depression Surgical History [place] teeth extracted History of root canal procedure Family History Maternal Grandfather Lung cancer Mother Basal cell carcinoma Other Mental health disorder Substance abuse Social History Household Members: Children Housing: House Alcohol intake: current Alcohol intake frequency: 0-2 drinks per day Alcohol type: beer Patient Tobacco Use Status: Former Tobacco user Tobacco use type: Cigarette and Smokeless Tobacco e-Cigarette/Vaping Use: Former Use Second Hand Smoke Exposure: No Substance Use Type: Marijuana service: No Current occupational status: employed 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 Cognitive needs: No Hearing needs: Yes Vision needs: Yes Physical Exam Vital Signs: Last Vital Signs Temp 98.0 F 10/07/24 16:05 Pulse 93 10/07/24 16:05 BP 130/70 10/07/24 16:05 Pulse Ox 96 10/07/24 16:05 Oxygen Delivery Method Room Air 10/07/24 16:05 BMI result Body Mass Index 35.0 Assessment & Plan Assessment & Plan (1) Tick bite: Code(s): W57.XXXA - Bitten or stung by nonvenomous insect and other nonvenomous arthropods, initial encounter Plan Plan I will initiate doxycycline therapy for the tick bite to address potential Lyme disease exposure, based on the patient's history and local prevalence. The patient will take the antibiotic for 10 days, twice daily, and I will order a Lyme titer test to confirm exposure. The patient is advised to watch for signs of myalgias, joint pain, fever, or chills, indicating complications or inadequate response. The prescription is sent to [facility] on [address] in [place], and the patient will complete the Lyme titer test at the adjacent lab. Orders: Orders Lyme IgG/IgM w/reflex to WB Today W57.XXXA - Bitten or stung by nonvenomous insect and other nonvenomous arthropods, initial encounter Medications: New doxycycline hyclate 100 mg PO BID 10 days 20 tabs 0RF Coding Level of Care Code Est Pt Level 3 (51404) Diagnoses Tick bite W57.XXXA
== END 2024-10-07 17:15 | disposition home or self-care (01) ==
PROVIDERS: PCP Nurse Practitioner Family; Visit Provider Physician Assistant Medical
DX: T63.481A Toxic effect of venom of other arthropod, accidental (unintentional), initial encounter (principal)

== ENCOUNTER → 2024-10-07 16:01 | Outpatient (BNVA) | payer OTHER, SELFPAY | PROVIDERS: PCP Nurse Practitioner Family; Visit Provider Physician Assistant Medical | DX: Z13.89 Encounter for screening for other disorder (principal) ==

== ENCOUNTER 2024-10-08 15:05 | Outpatient (REF) | payer OTHER, SELFPAY ==
[2024-10-09 05:58] LABS: Lyme Abs Screen <0.90 index
== END 2024-10-08 15:06 | disposition home or self-care (01) ==
LOC: HO.LAB 15:05
PROVIDERS: PCP Nurse Practitioner Family; Visit Provider Physician Assistant Medical
DX: T14.8XXA Other injury of unspecified body region, initial encounter (principal); W57.XXXA Bitten or stung by nonvenomous insect and other nonvenomous arthropods, initial encounter
CPT/HCPCS: 36415; 86617; 86618

== ENCOUNTER 2024-10-25 09:59 | Outpatient (AMB) | payer OTHER, SELFPAY ==
--- NOTE | 2024-10-25 10:06 | MHC.PC.OV ---
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: No Allergies Seasonal Allergies Allergy (Intermediate, Verified 10/25/24 10:35) Itchy Eyes Medication List - Last Reconciled 10/25/24 by Silvestre Diaz CNP lisdexamfetamine 60 mg PO DAILY naltrexone 25 mg PO DAILY PRN pantoprazole 40 mg PO QAM trazodone 150 mg PO BEDTIME venlafaxine ER 75 mg PO DAILY Tobacco use date assessed: 10/25/24 Dental Screening Dental Screen Date: 10/25/24 Did you have a dental visit in the last 12 months?: Yes Did you have a dental problem in the last 6 months where you did not have access to dental care?: No Was dental information given to patient?: Patient has dentist HPI HPI Comments History of Present Illness Details 54-year-old male presents for an extended physical exam. He admits to taking his medications as prescribed without adverse reactions. Acute issue(s) - Reports increased anxiety and depressive symptoms lately. He attributes his symptoms due to currently worldly and financial issues. Past Medical History - Depression, anxiety, ADHD (inattentive type), degenerative disc disease of cervical spine, hyperlipidemia, vitamin D deficiency, COLBY-on CPAP; black, oval skin lesion behind his right knee, rosacea , myopia, h-pylori Social History - Former smoker. History of vaping. Drinks 4-5 drinks (4 oz hard liquor, and 2 beers) daily; has been drinking this amount for the past 2 years. Consumes cannabis gummy nightly - Generally makes healthy dietary choices. Active but does not exercise. Generally sleep well Health maintenance - Last eye exam was 2 weeks ago with [facility]. Record not currently available. Advise to sign a release for his PCP to obtain his ophthalmology record - Last dental visit was a couple of week ago - Unknown last Tdap vaccine today. He will research his health record for update - He notes that he is up-to-date on the flu vaccine - Vaccinated for 1/2 shingles vaccine and contracted shingles; advised to wait 1 yr for second vaccine - Last colonoscopy was with [facility] in 06/03/24: Repeat colonoscopy in 1-2 years due to poor prep Specialists [facility] gastroenterology and sleep medicine Ophthalmology OP PMHNP and therapist [facility] Medical History GERD (gastroesophageal reflux disease) Helicobacter pylori (H. pylori) Tick bites Pigmentary glaucoma ADHD, predominantly inattentive type Generalized anxiety disorder Depression Surgical History [place] teeth extracted History of root canal procedure Family History Maternal Grandfather Lung cancer Mother Basal cell carcinoma Other Mental health disorder Substance abuse Social History Household Members: Children Housing: House Alcohol intake: current Alcohol intake frequency: 0-2 drinks per day Alcohol type: beer Patient Tobacco Use Status: Former Tobacco user Tobacco use type: Cigarette and Smokeless Tobacco e-Cigarette/Vaping Use: Former Use Second Hand Smoke Exposure: No Substance Use Type: Marijuana service: No Current occupational status: employed 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 1. Little interest or pleasure in doing things: more than half the days 2. Feeling down, depressed, or hopeless: more than half the days 3. Trouble falling or staying asleep, or sleeping too much: several days 4. Feeling tired or having little energy: more than half the days 5. Poor appetite or overeating: more than half the days 6. Feeling bad about yourself - or that you are a failure or have let yourself or your family down: more than half the days 7. Trouble concentrating on things, such as reading the newspaper or watching television: several days 8. Moving or speaking so slowly that other people could have noticed. Or the opposite - being so fidgety or restless that you have been moving around a lot more than usual: not at all 9. Thoughts that you would be better off or of hurting yourself in some way: not at all Total score: 12 Depression Screening Interpretation: Positive Depression Screening Follow-up: Existing condition and In treatment Depression Screening Done: Yes 06946 - PHQ-9 Billing: Yes Source: Developed by Drs. Davide Bauman, Lyn Turner, Darci Contreras and colleagues, with an educational gonzalo from [employer]. Thrive Questionnaire Date Thrive assessed: 10/25/24 I am a: Patient What is your living situation today?: I have a steady place to live Within the past 12 months, did the food you bought not last and you didn't have the money to get more?: Never true Within the past 12 months, did you worry whether your food would run out before you got money to buy more?: Never true Do you have trouble paying for medicines?: No Do you have trouble getting transportation to medical appointments?: No Do you have trouble paying your heating and electricity bill?: No Do you have trouble taking care of your child, family member or friend?: No Do you have trouble with day-to-day activities such as bathing, preparing meals, shopping, managing finances, etc.?: No Are you currently unemployed and looking for a job?: No Are you interested in more education?: No Please select the resources that you would like help with: None Currently or been in a relationship where the following occur: No concerns reported THRIVE Score: 0 AUDIT C Alcohol Use Questionnaire (AUDIT-C) 1. How often do you have a drink containing alcohol?: 4 or more times a week 2. How many drinks containing alcohol do you have on a typical day when you are drinking?: 5 or 6 3. How often do you have six or more drinks on one occasion?: Less than monthly Total Score: 7 Score Reviewed/Action Taken: Yes MARIA M-7 AMB Questionnaire MARIA M-7 Date MARIA M - 7 assessed: 10/25/24 Feeling nervous, anxious, or on edge: 2 = More than half the days Not being able to stop or control worryin = Not at all Worrying too much about different things: 1 = Several days Trouble relaxin = More than half the days Being so restless that it is hard to sit still: 0 = Not at all Becoming easily annoyed or irritable: 1 = Several days Feeling afraid as if something awful might happen: 1 = Several days Total MARIA M-7 score (0-4 normal; 5-9 mild; 10-14 moderate; 15-21 severe): 7 Source: Developed by Drs. Davide Bauman, Lyn Turner, Darci Contreras and colleagues, with an educational gonzalo from [employer]. MARIA M-7 Assessment Billing MARIA M-7 Assessment Tool: MARIA M-7 Assessment 53802 Review of Systems Const Details: Denies chills, Denies fatigue, Denies fever(s), Denies headache(s) and Denies weakness HEENT Denies change in vision, Denies dizziness, Denies headache(s), Denies hearing loss, Denies nasal congestion, Denies sinus pain, Denies sinus pressure and Denies sore throat Card Denies chest pain, Denies lightheadedness, Denies dyspnea and Denies other (palpitations) Resp Denies cough, Denies dyspnea and Denies wheezing GI Denies abdominal pain, Denies melena, Denies hematochezia, Denies change in bowel habits, Denies dyspepsia and Denies nausea Denies hematuria and Denies dysuria Musc Denies abnormal gait, Denies myalgias, Denies arthralgias, Denies numbness and Denies tingling Skin/Breast Report skin lesion, Denies rash, Denies unusual bruising and Denies wounds Neuro Denies abnormal gait, Denies dizziness, Denies headache(s), Denies memory loss, Denies numbness, Denies Sensory deficit (Neuro), Denies tingling and Denies weakness Psych Reports anxiety, Reports depression and Denies memory loss Endo Denies cold intolerance, Denies fatigue, Denies heat intolerance, Denies polydipsia and Denies polyuria Jaden/Lymph Denies easy bleeding and Denies easy bruising Aller/Immun Denies wheezing Physical exam (Primary Care) Vital Signs: Last Vital Signs Temp 98.1 F 10/25/24 10:10 Pulse 88 10/25/24 10:10 Resp 16 10/25/24 10:10 BP 136/80 10/25/24 10:41 Pulse Ox 100 10/25/24 10:10 Oxygen Delivery Method Room Air 10/25/24 10:10 BMI result Body Mass Index 35.0 Tobacco/Smoking Status: Tobacco use Status Tobacco use date assessed 10/25/24 10/25/24 10:14 Patient Tobacco Use Status Former Tobacco user 10/25/24 10:14 Tobacco use type Cigarette,Smokeless Tobacco 10/25/24 10:14 e-Cigarette/Vaping Use Former Use 10/25/24 10:14 PHQ-9: PHQ-9 Score PHQ-9: Total score 12 10/25/24 14:24 Depression Screening Interpretation: Positive Depression Screening Follow-up: Existing condition and In treatment Thrive Assessment: Date of Thrive Assessment Date Thrive assessed 10/25/24 10/25/24 10:14 Currently or been in a relationship where the following occur: No concerns reported Const Other: General: no acute distress, well developed, alert and awake Nutritional Appearance: well nourished Orientation/consciousness: patient oriented x3 HENMT Head: Yes normocephalic and Yes atraumatic Ears: hearing grossly normal bilaterally and TM's normal bilaterally General nose exam: Normal external nose present and Normal nares present Mouth: Normal oral and palatal mucosa present and moist mucous membranes Teeth and gingiva: dentition normal Throat: Yes oropharynx normal Eyes Pupils: Equal, round and reactive pupils present and Pupil accommodation reflex normal EOM: EOMs intact bilaterally Neck Neck: Yes normal visual inspection, Yes no lymphadenopathy and Yes trachea midline Thyroid: Thyroid normal Carotids: no bruits Lymphatic: no lymphadenopathy noted Chest Chest palpation & inspection: normal inspection of the chest Resp Effort & Inspection: normal respiratory effort Auscultation: clear to auscultation bilaterally Cardio Rate: regular rate Rhythm: regular rhythm Heart sounds: S1 normal heart sound present, S2 normal heart sound present, no gallops, no murmurs and no rubs Bruits: no abdominal aortic bruits and no carotid bruits GI Palpation (GI): No Abdominal aortic bruit present, Soft to palpation, nontender, No hepatosplenomegaly present and No Rebound tenderness present Auscultation: normal bowel sounds General: Yes no CVA tenderness Back/Spine/Pelvis Back: no CVA tenderness Cervical Spine: cervical ROM normal and No Cervical spine tenderness Thoracic/Lumbar Spine: thoraco-lumbar ROM normal, No pain with thoraco-lumbar ROM, No thoracic spinal tenderness and No lumbar spinal tenderness Skin General: warm and dry. Normal skin color. Normal skin turgor Lesions: Dark-brown, oval lesion behind his right knee Rashes: no rashes Trauma: no lacerations or abrasions Wounds: no wounds Nails: normal Neuro General: patient oriented x3, gait normal and CN's II-XI intact bilaterally Cranial nerves: Yes Equal, round and reactive pupils present Cognition (Neuro): normal cognition Gait exam (Neuro): Normal gait present Motor exam (neuro): 5/5 motor strength present throughout Sensory Exam: No Sensory deficit (Neuro) Deep tendon reflexes (DTR's): Right patellar reflex intensity grade: 2+ and Left patellar reflex intensity grade: 2+ Extrem General: Yes normal to inspection, No edema and No calf tenderness Psych Appearance: grossly normal Affect: normal affect Attitude: cooperative Thought process: Normal thought process present Coding Level of Care Code Est Pt Level 4 (46835) Est Pt Prev Care 40-64y(37042) Diagnoses Adult general medical exam Z00.00 Alcohol use disorder F10.90 Obesity (BMI 30-39.9) E66.9 Skin lesion L98.9 Generalized anxiety disorder F41.1 Other depression F32.89 Depression Type: other depression Laboratory tests ordered as part of a complete physical exam (CPE) Z00.00 Additional Codes MARIA M-7 Assessment Billing - MARIA M-7 Assessment Tool: MARIA M-7 Assessment 78145 ([id number]) PHQ-9 - 06496 - PHQ-9 Billing: Yes ([id number]) Assessment & Plan Assessment & Plan (1) Adult general medical exam: Code(s): Z00.00 - Encounter for general adult medical examination without abnormal findings Category: Medical Plan: No significant functional limitation noted. Continue current treatment regimen. Perform lab work and follow-up for telehealth visit in 2-3 weeks for labs review. Return sooner with symptoms or concerns. Verbalized understanding and agreed with the plan. (2) Alcohol use disorder: Code(s): F10.90 - Alcohol use, unspecified, uncomplicated Category: Medical Plan: He drinks 4-5 drinks (4 oz hard liquor, and 2 beers) daily; has been drinking this amount for the past 2 years. Instructed on the health risks and complications of excessive alcohol intake and encouraged to cut down or avoid drinking. Referred to [facility] for alcohol use treatment. Follow-up as needed. Verbalized understanding and agreed with the plan. (3) Obesity (BMI 30-39.9): Code(s): E66.9 - Obesity, unspecified Category: Medical Plan: He currently weighs 230 lb, BMI is 35.0. Declines referral to with management or dietitian at this time and notes that he will continue to make healthy lifestyle changes. Healthy diet and routine exercise encouraged. Follow-up as needed. Verbalized understanding and agreed with the plan. (4) Skin lesion: Code(s): L98.9 - Disorder of the skin and subcutaneous tissue, unspecified Category: Medical Plan: Dark-brown, oval skin lesion behind his right knee. Referred to dermatology as requested. (5) Generalized anxiety disorder: Code(s): F41.1 - Generalized anxiety disorder Category: Medical Plan: Reports increased anxiety and depressive symptoms lately. He attributes his symptoms due to currently worldly and financial issues. PHQ-9 and MARIA M-7 scores revealed moderate depression and mild anxiety respectively. Continue current treatment regimen. Routine exercise encouraged. Follow-up with psych provider and therapist as planned. Verbalized understanding and agreed with the treatment plan. (6) Depression: Code(s): F32.A - Depression, unspecified Category: Medical Qualifiers: Depression Type: other depression Qualified Code(s): F32.89 - Other specified depressive episodes Plan: Plan as above. (7) Laboratory tests ordered as part of a complete physical exam (CPE): Code(s): Z00. - Encounter for general adult medical examination without abnormal findings Category: Medical Plan: Fasting labs ordered as part of a complete physical exam. Advised to fast for at least 10 hours before getting labs drawn. May drink water Verbalized understanding and agreed with treatment plan. Orders: Orders Complete Blood Count Auto Diff 10/25/24 Z00. - Encounter for general adult medical examination without abnormal findings Comprehensive [place]. Panel Fast 10/25/24 Z. - Encounter for general adult medical examination without abnormal findings Lipid Panel 10/25/24 Z. - Encounter for general adult medical examination without abnormal findings TSH reflex Free T4 10/25/24 Z. - Encounter for general adult medical examination without abnormal findings Vitamin D 25-OH Total 10/25/24 Z00. - Encounter for general adult medical examination without abnormal findings Microalbumin, Random (w Creat) 10/25/24 Z00. - Encounter for general adult medical examination without abnormal findings UA CC w/rflx Micro + Cult 10/25/24 Z00.00 - Encounter for general adult medical examination without abnormal findings Referrals Dermatology Referral L98.9 - Disorder of the skin and subcutaneous tissue, unspecified Addiction Medicine Referral F10.90 - Alcohol use, unspecified, uncomplicated
[2024-10-25 10:10] VITALS: BP 144/77; PULSE 88; RESP 16; TEMP 36.7; O2SAT 100; BMI 35.0
[2024-10-25 10:41] VITALS: BP 136/80
== END 2024-10-25 11:04 | disposition home or self-care (01) ==
LOC: HO.HMCFM 10:00
PROVIDERS: PCP Nurse Practitioner Family; Visit Provider Nurse Practitioner Family
DX: Z00.00 Encounter for general adult medical examination without abnormal findings (principal); L98.9 Disorder of the skin and subcutaneous tissue, unspecified; F10.90 Alcohol use, unspecified, uncomplicated; E66.9 Obesity, unspecified; Z68.35 Body mass index [BMI] 35.0-35.9, adult; F41.1 Generalized anxiety disorder; F32.89 Other specified depressive episodes

== ENCOUNTER → 2024-10-25 09:59 | Outpatient (BNVA) | payer OTHER, SELFPAY | PROVIDERS: PCP Nurse Practitioner Family; Visit Provider Nurse Practitioner Family | DX: Z00.00 Encounter for general adult medical examination without abnormal findings (principal); F10.90 Alcohol use, unspecified, uncomplicated; E66.9 Obesity, unspecified; L98.9 Disorder of the skin and subcutaneous tissue, unspecified; F41.1 Generalized anxiety disorder; F32.89 Other specified depressive episodes; Z68.35 Body mass index [BMI] 35.0-35.9, adult | CPT/HCPCS: 96127 ==

== ENCOUNTER 2024-11-19 08:28 | Outpatient (REF) | payer OTHER, SELFPAY ==
[2024-11-19 10:22] LABS: MANUAL DIFF FLAG NO
[2024-11-19 10:35] LABS: Appearance Urine Clear; Glucose Urine UA Negative (Negative); PH 5.5 (5.0-9.0); Specific Gravity - Urine 1.020 (1.005-1.025)
[2024-11-19 10:46] LABS: Hematocrit 41.0 % (42.0-52.0); Hemoglobin 14.1 g/dl (14.0-18.0); Imm Gran Abs Auto 0.02 X10*3/uL (0.00-0.03); Imm Gran Pct Auto 0.4 % (0.0-0.4); Lymphocytes Absolute Auto 1.8 X10*3/uL (1.2-4.9); Mean Corpuscular HGB Conc 34.4 g/dl (31.0-36.0); Mean Corpuscular Hemoglobin 30.1 pg (27.0-33.0); Mean Corpuscular Volume 87.4 fL (80.0-98.0); NRBC Abs Auto 0.000 X10*3/uL (0.0-0.012); NRBC Pct Auto 0.0 /100WBC (0.0-0.2); Platelet Count 239 X10*3/uL (160-400); Red Blood Count 4.69 X10*6/uL (4.60-5.80); White Blood Count 5.4 X10*3/uL (4.8-10.8)
[2024-11-19 11:01] LABS: Alanine Aminotransferase 40 U/L (0-40); Albumin Level 3.8 g/dL (3.5-5.0); Alkaline Phosphatase 70 U/L (39-117); Anion Gap 13 (12-20); Aspartate Amino Transferase 35 U/L (5-37); Blood Urea Nitrogen 12 mg/dL (9-16); Calcium 8.8 mg/dL (8.4-10.2); Carbon Dioxide 26 mmol/L (22-29); Chloride 105 mmol/L (96-108); Cholesterol 206 mg/dL (<200); Estimated Glomerular Filt Rate > 60; HDL Cholesterol 64 mg/dL (>40); Potassium 3.7 mmol/L (3.3-5.1); Sodium 140 mmol/L (135-145); Total Protein 6.5 g/dL (6.5-8.0); Triglycerides 108 mg/dL (<150)
[2024-11-19 11:25] LABS: Microalbum/Creatinine Ratio Ur 3.5 ug/mg cr (<30)
== END 2024-11-19 08:29 | disposition home or self-care (01) ==
LOC: HO.HMGCLDS 08:28
PROVIDERS: PCP Nurse Practitioner Family; Visit Provider Nurse Practitioner Family
DX: Z00.00 Encounter for general adult medical examination without abnormal findings (principal)
CPT/HCPCS: 36415; 80053; 80061; 81003; 82043; 82306; 82570; 84443; 85025

== ENCOUNTER 2024-11-23 15:08 | Outpatient (AMB) | payer OTHER, SELFPAY ==
--- NOTE | 2024-11-23 14:24 | A.OFFPC_ITS ---
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 He admits to making healthy lifestyle changes. He notes that he drinks 5-6 (beers and liquor) daily. He has been drinking excessively for the past 2 years. He was referred to [facility] clinic but has not heard from them. He notes that he may have missed a call from them. Reports a cut on his right gross, from a nail, while doing work in his yard a few days ago. The wound is pain and red. No drainage. No fever, chills or body aches. He does not want to take time off to be evaluated. [facility] Medical History GERD (gastroesophageal reflux disease) Helicobacter pylori (H. pylori) Tick bites Pigmentary glaucoma ADHD, predominantly inattentive type Generalized anxiety disorder Depression Surgical History [place] teeth extracted History of root canal procedure Family History Maternal Grandfather Lung cancer Mother Basal cell carcinoma Other Mental health disorder Substance abuse Social History Household Members: Children Housing: House Alcohol intake: current Alcohol intake frequency: 0-2 drinks per day Alcohol type: beer Patient Tobacco Use Status: Former Tobacco user Tobacco use type: Cigarette and Smokeless Tobacco e-Cigarette/Vaping Use: Former Use Second Hand Smoke Exposure: No Substance Use Type: Marijuana service: No Current occupational status: employed 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 Davide Bauman, Lyn Turner, Darci Contreras and colleagues, with an educational gonzalo from [employer]. Review of Systems Const Details: Denies chills, Denies fatigue, Denies fever(s), Denies headache(s) and Denies weakness Cardiac Denies chest pain, Denies claudication, Denies leg edema, Denies lightheadedness, Denies palpitations, Denies dyspnea, Denies dyspnea on exertion, Denies orthopnea and Denies other (Loss of consciousness) Resp Denies cough, Denies excessive phlegm production, Denies dyspnea, Denies dyspnea on exertion, Denies snoring and Denies wheezing Skin Reports as per HPI Physical exam (Primary Care) Tobacco/Smoking Status: Tobacco use Status Tobacco use date assessed 11/23/24 11/23/24 14:27 Patient Tobacco Use Status Former Tobacco user 11/23/24 14:27 Tobacco use type Cigarette,Smokeless Tobacco 11/23/24 14:27 e-Cigarette/Vaping Use Former Use 11/23/24 14:27 Thrive Assessment: Date of Thrive Assessment Date Thrive assessed 10/25/24 11/23/24 14:27 Const Other: Patient is alert and oriented x3 Telehealth Telehealth Telehealth Platform: Telephone Location of provider rendering services: practice address Location of patient: address on file Patient Identification confirmed using: Name, : Yes Telehealth method: voice only Patient verbally consented to treatment: Yes Patient verbally consented to billing insurance company: Yes Patient informed of any privacy concerns related to visit: Yes Coding Level of Care Code Tele Est Pt Level 4 (74169) Diagnoses Hypercholesterolemia E78.00 Elevated fasting glucose R73.01 Laceration of right foot S91.311A Alcohol use disorder F10.90 Time Spent (min) 30 Assessment & Plan Assessment & Plan (1) Hypercholesterolemia: Code(s): E78.00 - Pure hypercholesterolemia, unspecified Category: Medical Plan: Recent total cholesterol and LDL levels are slightly the with the, 206 and 121 respectively. Triglycerides and HDL levels are normal. Likely related to poor diet or excessive alcohol intake. Advised to limit foods high in saturated fat and avoid foods high in trans fat; cut down or avoid drinking alcohol, no more than 2 drinks daily or 5 weekly. Routine exercise encouraged. Fast for 10-12 hours, may drink water, performed lipid panel blood work 2-3 days before next visit. Follow-up for telehealth visit in 2 months. Return sooner with symptoms or concerns. Verbalized understanding and agreed with the plan. (2) Elevated fasting glucose: Code(s): R73.01 - Impaired fasting glucose Category: Medical Plan: Recent fasting glucose is slightly elevated, 101. May be related to poor diet or excessive alcohol intake. Healthy diet and routine exercise encouraged. Advised to cut down or avoid drinking. Will recheck fasting glucose and make changes as needed. Verbalized understanding and agreed with the plan. (3) Laceration of right foot: Code(s): S91.311A - Laceration without foreign body, right foot, initial encounter Category: Medical Plan: Reports a cut on his right gross, from a nail, while doing work in his yard a few days ago. The wound is pain and red. No drainage. No fever, chills or body aches. He does not want to take time off to be evaluated. Cephalexin 500 mg twice daily ordered x7 days; advised to take as prescribed. May take Tylenol ibuprofen for pain or discomfort. Encouraged to keep wound clean with soap and water daily. Instructed to follow-up with PCP or walk-in clinic as soon as possible for evaluation and tetanus vaccine. Verbalized understanding and agreed with the plan. (4) Alcohol use disorder: Code(s): F10.90 - Alcohol use, unspecified, uncomplicated Category: Medical Plan: He notes that he drinks 5-6 (beers and liquor) daily. He has been drinking exces sively for the past 2 years. He was referred to [facility] care clinic but has not heard from them. He notes that he may have missed a call from them. Instructed on the health risks and complications of excessive alcohol intake. Encouraged to cut down or avoid drinking. No more than 2 drinks daily or 5 weekly. Encouraged to contact [facility] comprehensive Care [facility]; phone number given. Verbalized understanding and agreed with the plan. Orders: Orders Lipid Panel 2 Months E78.00 - Pure hypercholesterolemia, unspecified Medications: New cephalexin 500 mg PO BID 14 tabs 0RF 7 days
== END 2024-11-23 15:15 | disposition home or self-care (01) ==
LOC: HO.HMCFM 15:08
PROVIDERS: PCP Nurse Practitioner Family; Visit Provider Nurse Practitioner Family
DX: E78.00 Pure hypercholesterolemia, unspecified (principal); R73.01 Impaired fasting glucose; S91.311A Laceration without foreign body, right foot, initial encounter; F10.90 Alcohol use, unspecified, uncomplicated

== ENCOUNTER 2024-11-25 12:53 | Outpatient (AMB) | payer OTHER, SELFPAY ==
[2024-11-25 13:10] VITALS: BP 142/80; PULSE 74; O2SAT 96; BMI 36.3
--- NOTE | 2024-11-25 13:10 | MHC.AM.SUB ---
Vital Signs 11/25/24 13:10 Height 5 ft 8 in Weight 239 lb BMI 36.3 BP 142/80 H Pulse 74 Pulse Oximetry (%) 96 Intake Visit Reasons: MAT Intake Allergies Seasonal Allergies Allergy (Intermediate, Verified 11/25/24 13:12) Itchy Eyes Medication List - Last Reconciled 11/25/24 by OLLIE Navarrete cephalexin 500 mg PO BID 7 days lisdexamfetamine 60 mg PO DAILY naltrexone 25 mg PO DAILY PRN pantoprazole 40 mg PO QAM trazodone 150 mg PO BEDTIME venlafaxine ER 75 mg PO DAILY HPI Comments Details: The patient is a 54-year-old male who presents for a MAT intake related to alcohol use disorder. Currently on naltrexone tablets and reports since being on medication drinking has decreased, although acknowledges drinking 2-6 nips per day. Reports coping with several life stressors related to work. The patient is engaged in mental services including therapy and psychiatric medication management. The patient is interested in starting on Vivitrol monthly injections as this will help with adherence and minimize risk for diversion. Review of Systems Const All systems reviewed & are unremarkable except as noted in HPI and below Physical Exam Vital Signs: Last Vital Signs Pulse 74 11/25/24 13:10 BP 142/80 H 11/25/24 13:10 Pulse Ox 96 11/25/24 13:10 BMI result Body Mass Index 36.3 Const General: cooperative Psych Appearance: well kempt Mental Status: mental status grossly normal Speech and movement: Normal speech and movement present Affect: Animated affect present Attitude: cooperative Thought process: Normal thought process present Thought content: Normal thought content present Insight: Good insight present (Psych) Judgement: Good judgement present (Psych) Results AMB 14 Panel Urine Drug Screen Urine Marijuana (THC) Positive Last Edit by Lalito Castaneda CMA on 11/25/24 13:17 Urine Cocaine Negative Last Edit by Lalito Castaneda CMA on 11/25/24 13:17 Urine Morphine Negative Last Edit by Lalito Castaneda CMA on 11/25/24 13:17 Urine Methamphetamine Negative Last Edit by Lalito Castaneda CMA on 11/25/24 13:17 Urine Amphetamine Positive Last Edit by Lalito Castaneda CMA on 11/25/24 13:17 Urine Benzodiazepine Negative Last Edit by Lalito Castaneda CMA on 11/25/24 13:17 Urine Barbiturates Negative Last Edit by Laltio Castaneda, JAZMINE on 11/25/24 13:17 Urine Methadone Negative Last Edit by Lalito Castaneda, JAZMINE on 11/25/24 13:17 Urine Buprenorphine Negative Last Edit by Lalito Castaneda, JAZMINE on 11/25/24 13:17 Urine Tricyclic Antidepressant Negative Last Edit by Lalito Castaneda, JAZMINE on 11/25/24 13:17 Urine MDMA Negative Last Edit by Lalito Castaneda, JAZMINE on 11/25/24 13:17 Urine Oxycodone Negative Last Edit by Lalito Castaneda, JAZMINE on 11/25/24 13:17 Urine Phencyclidine Negative Last Edit by Lalito Castaneda CMA on 11/25/24 13:17 Urine Propoxyphene Negative Last Edit by Lalito Castaneda, JAZMINE on 11/25/24 13:17 Results Reviewed Results Reviewed: Laboratory Last Values POC Urine Buprenorphine Negative 11/25/24 13:12 POC Urine Morphine Negative 11/25/24 13:12 POC Urine Oxycodone Negative 11/25/24 13:12 POC Urine Methadone Negative 11/25/24 13:12 POC Urine Propoxyphene Negative 11/25/24 13:12 POC Urine Barbiturates Negative 11/25/24 13:12 POC U Tricyclic Antidpr Negative 11/25/24 13:12 POC Urine PCP Negative 11/25/24 13:12 POC Ur Amphetamines Positive 11/25/24 13:12 POC Ur Methamphetamine Negative 11/25/24 13:12 POC Urine MDMA Negative 11/25/24 13:12 POC Ur Benzodiazepine Negative 11/25/24 13:12 POC Urine Cocaine Negative 11/25/24 13:12 POC Ur Marijuana (THC) Positive 11/25/24 13:12 [facility] Medical History GERD (gastroesophageal reflux disease) Helicobacter pylori (H. pylori) Tick bites Pigmentary glaucoma ADHD, predominantly inattentive type Generalized anxiety disorder Depression Surgical History [place] teeth extracted History of root canal procedure Family History Maternal Grandfather Lung cancer Mother Basal cell carcinoma Other Mental health disorder Substance abuse Social History Household Members: Children Housing: House Alcohol intake: current Alcohol intake frequency: 0-2 drinks per day Alcohol type: beer Patient Tobacco Use Status: Former Tobacco user Tobacco use type: Cigarette and Smokeless Tobacco e-Cigarette/Vaping Use: Former Use Second Hand Smoke Exposure: No Substance Use Type: Marijuana service: No Current occupational status: employed 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 Education provided re: Vivitrol including side effects purpose and general medication information. Encouraged to continue risk reduction approach of minimizing the use of alcohol and consider the possibility of an inpatient stay to detox. Encouraged to attend AA meetings and information offered regarding a assistant golf coach, the patient declines at present time. Orders: Orders AMB 14 Panel Urine Drug Screen Today F11.20 - Opioid dependence, uncomplicated Medications: New naltrexone microspheres ER (Vivitrol) Administer IM in the gluteal area Q4W 380 mg IM Q4W 1 ea 0RF Patient Instructions: - [facility] will call patient when Vivitrol injection is available. - Risk reduction approach in reducing alcohol consumption. - Consider inpatient detox stay. - Attend AA meetings and or work with a assistant golf coach. - Call with questions and or concers, as soon as possible. MAT Intake Nursing Intake Reason for visit: Concern from himself and his providers about amount of alcohol consumption Are you currently using?: Yes What are you taking?: drinking around 2 alcohol beverages a day down from 7 plus- THC edibles daily When was your last use?: yesterday How much?: 2 drinks plus CBD THC edibles at night What is your source of income?: Employed What is your current relationship status?: single- Current PCP: David Quan Date of last visit: 11/23/24 Referral Source: PCP Details: Has been taking Naltrexon PO for roughly 7 months. Was prescribed earlier than that but delayed taking it. Substance Abuse History Substance Abuse History (includes route, frequency and quantity): Methadone (30+ years ago), Alcohol, Marijuana, Tobacco (past history, has switched to vaping.) and Other Age of first use: early teenage years Details: Familial social alcohol use was common Social History Domestic Violence concerns: no Children: 2 daughters- 12 and 17- he has them every other week Do you have a support system?: Some family Current mode of transportation?: own vehicle Where are you currently residing?: [place] LMP: NA IV Drug Use Have you ever shared needles?: No Have you ever belonged to a needle exchange program?: No Do you buy needles at a pharmacy?: No Have you ever overdosed?: No Number of lifetime overdoses: 0 Was Naloxone administered?: Not applicable Recovery History Have you had any periods of recovery?: Yes What is your longest time in recovery?: 11 months When was the last time you were in recovery?: 2014/2015 Have you ever had inpatient treatment for your substance abuse disorder?: No Have you been in an inpatient detoxification program?: No Have you been in an inpatient [place]hab/[place] house?: No Have you been in an outpatient Methadone Maintenance program?: No Have you been in an outpatient Suboxone Maintenance program?: No Have you been in an AA/NA support program?: Yes Have you had a Recovery Support Facility Environmental Technician?: No Have you had Peer Support?: No Behavioral Health History Do you have a current provider? If so, who?: Yes, [facility] diagnosis: depression, ADHD History of other addictive behavior: no History of inpatient psychiatric hospitalization? If so, how many? Most Recent? Where?: no History of self harming thoughts?: No History of homicidal or suicidal intentions?: No Medical Conditions Endocarditis?: No Skin Infection: No Seizure related to withdrawal or overdose: No Head or brain injury: Yes (mild concussion 5 nino in head- slipped on ice and hit head on Ice and rocks) Hepatitis A (if yes, have you been treated?): No Hepatitis B (if yes, have you been treated?): No Hepatitis C (if yes, have you been treated?): No HIV (if yes, have you been treated?): No TB (if yes, have you been treated?): No Other: No Do you have any chronic pain conditions?: degenerative disc disease- rehabilitated Legal History History of incarceration: No Currently on parole or probation: No Court mandated programs: No Pending court cases: No DCF involvement: No
== END 2024-11-25 14:30 | disposition home or self-care (01) ==
LOC: HO.HCC 12:53
PROVIDERS: PCP Nurse Practitioner Family; Visit Provider Clinical Nurse Specialist Psychiatric/Mental Health
DX: F11.20 Opioid dependence, uncomplicated (principal); F10.90 Alcohol use, unspecified, uncomplicated
CPT/HCPCS: 99204

== ENCOUNTER → 2024-11-25 12:53 | Outpatient (BNVA) | payer OTHER, SELFPAY | PROVIDERS: PCP Nurse Practitioner Family; Visit Provider Clinical Nurse Specialist Psychiatric/Mental Health | DX: F11.20 Opioid dependence, uncomplicated (principal) | CPT/HCPCS: 80307 ==

== ENCOUNTER 2024-11-30 09:24 | Outpatient (AMB) | payer OTHER, SELFPAY ==
[2024-11-30 10:03] VITALS: BP 130/90; PULSE 67; O2SAT 96; BMI 35.4
--- NOTE | 2024-11-30 10:03 | A.OFFVIS_ITS ---
Vital Signs 11/30/24 10:03 Height 5 ft 8 in Weight 233 lb BMI 35.4 BP 130/90 H Blood Pressure Location Rt brachial Position Sitting Pulse 67 Pulse Source Pulse Oximeter Pulse Oximetry (%) 96 Oxygen Delivery Method Room Air Intake Visit Reasons: Follow Up Transmission Builder Required: No Accompanied by: Self / Same As Patient Allergies Seasonal Allergies Allergy (Intermediate, Verified 11/30/24 10:06) Itchy Eyes Medication List - Last Reconciled 11/30/24 by AMBREEN Muse lisdexamfetamine 60 mg PO DAILY naltrexone 25 mg PO DAILY PRN naltrexone microspheres ER (Vivitrol) 380 mg IM Q4W pantoprazole 40 mg PO QAM trazodone 150 mg PO BEDTIME venlafaxine ER 75 mg PO DAILY HPI Comments Details: 53-yr-old male presents for f/u of COLBY. Since last visit, patient underwent 07/15/2024 home sleep study, showing mild COLBY with AHI 10.4 per hour, O2 chanda 81%, average SpO2 91%, SpO2 under 90% times 37 minutes and under 88% x8 minutes. After the home sleep study was completed, a new CPAP replacement order was sent to the respiratory [place]. However, patient states he has not received any calls yet. Patient reports he is still in need of new CPAP supplies-states it is now more difficult to find replacement parts for his old ResMed CPAP. From initial HPI: Patient reports he was diagnosed with sleep apnea approx 6-7 yrs ago in [place]. He states he underwent HST as he was having fatigue, very loud snoring, gasping, apneas, sleep difficulties. He states he was diagnosed w/ moderate COLBY. He was started on a ResMed APAP device. He uses his APAP nightly, sleeps well and feels well rested with use. His machine no longer transmits to his [employer] Airview Patrick. The machine does show his residual events are < 2/hr but does show poor seal at times. He has since moved to [facility], and no longer has a PAP resp supplier. Has been buying his PAP supplies online, however he can no longer find filter replacements for his machine. He has been having to wash and repeatedly resue his old PAP filters. He can have vivid dreams. He denies RLS, GERD, nocturia, am headaches. He does not recall who his previous respiratory supplier. He does not have a copy of his last HST. [facility] Medical History GERD (gastroesophageal reflux disease) Helicobacter pylori (H. pylori) Tick bites Pigmentary glaucoma ADHD, predominantly inattentive type Generalized anxiety disorder Depression Surgical History [place] teeth extracted History of root canal procedure Family History Maternal Grandfather Lung cancer Mother Basal cell carcinoma Other Mental health disorder Substance abuse Social History Household Members: Children Housing: House Alcohol intake: current Alcohol intake frequency: 0-2 drinks per day Alcohol type: beer Patient Tobacco Use Status: Former Tobacco user Tobacco use type: Cigarette and Smokeless Tobacco e-Cigarette/Vaping Use: Former Use Second Hand Smoke Exposure: No Substance Use Type: Marijuana service: No Current occupational status: employed 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 Current occupational exposures/hazards: No Cognitive needs: No Hearing needs: Yes Vision needs: Yes Physical Exam Vital Signs: Last Vital Signs Pulse 67 11/30/24 10:03 BP 130/90 H 11/30/24 10:03 Pulse Ox 96 11/30/24 10:03 Oxygen Delivery Method Room Air 11/30/24 10:03 BMI result Body Mass Index 35.4 Const General: no acute distress Orientation/consciousness: patient oriented x3 HEENT Other: Mallampati stage 3 Resp Effort & Inspection: normal respiratory effort and able to speak in complete sentences Neuro General: patient oriented x3 Psych Mental Status: mental status grossly normal Speech and movement: Clear speech present Attitude: cooperative Assessment & Plan Assessment & Plan (1) COLBY (obstructive sleep apnea): Code(s): G47.33 - Obstructive sleep apnea (adult) (pediatric) Category: Medical Plan Reviewed HST, showing mild COLBY with mild nocturnal hypoxemia We will follow-up on status of CPAP machine order written and submitted in August, we will follow-up on status. Once patient receives new have machine, start APAP 5-20 cmH2O w/ EPR set to need nightly > 4 hours, as pt continues to have good clinical effect from use. * Clean CPAP machine and supplies routinely. * Change CPAP supplies routinely. * Use distilled water in CPAP water reservoir. * Pt to contact us or respiratory company with any questions or concerns. Pt to follow-up in 6 months or sooner prn. Coding Level of Care Code Est Pt Level 3 (69346) Diagnoses COLBY (obstructive sleep apnea) G47.33
== END 2024-11-30 10:43 | disposition home or self-care (01) ==
LOC: HO.HSMS 09:25
PROVIDERS: Visit Provider Nurse Practitioner Family
DX: G47.33 Obstructive sleep apnea (adult) (pediatric) (principal)
CPT/HCPCS: 99213

== ENCOUNTER 2024-12-08 10:05 | Outpatient (AMB) | payer OTHER, SELFPAY ==
--- NOTE | 2024-12-08 10:11 | AM.OFFVISNUR ---
Vital Signs 12/08/24 10:26 Height 5 ft 8 in Weight 106.594 kg BMI 35.7 BP 120/80 Pulse 76 Pulse Source Pulse Oximeter Pulse Oximetry (%) 98 Oxygen Delivery Method Room Air Intake Visit Reasons: VIVitrol injection Allergies Seasonal Allergies Allergy (Intermediate, Verified 12/08/24 10:28) Itchy Eyes Nursing Note Dhaval is here for his first Vivitrol injection. Dhaval is alert, oriented and cooperative with care. Dhaval reported that he was just laid off from his position however, he had been anticipating such and had been alert to other opportunities for which he has already interviewed. Dhaval is going to reach out and re-engage in therapy to support his recovery. Thorough education provided regarding the injection and educational information given regarding the medication. All questions answered. Follow-up scheduled in 4 weeks. Office Meds Vivitrol 380 mg intramuscular suspension,extended release Performing Provider: OLLIE Navarrete Performing Location: [facility] Administered by: Cyn Saini RN on 12/08/24 10:45 Dose Route Admin Location Dispensed Lot Number Expiration Date [facility] Director Of Field Coordination 380 mg IM RG 380 mg 2025-1010T 12/08/24 93230-562-67 [employer] Total Dispensed Waste 380 mg 0 % Comments: Pt here for first Vivitrol 380 mg injection. Pt denies any concerns and tolerated injection well. Educated on signs and symptoms of infection and encouraged to call [facility] with any related questions or concerns, pt verbalized understanding. Follow-up scheduled in 4 weeks for next injection. Assessment & Plan Assessment & Plan Orders: Orders AMB Naltrexone Injection Patient Supplied (NC) Today F10.20 - Alcohol dependence, uncomplicated Coding
[2024-12-08 10:26] VITALS: BP 120/80; PULSE 76; O2SAT 98; BMI 35.7
== END 2024-12-08 11:13 | disposition home or self-care (01) ==
PROVIDERS: PCP Nurse Practitioner Family
DX: F10.20 Alcohol dependence, uncomplicated (principal)

== ENCOUNTER → 2024-12-08 10:05 | Outpatient (BNVA) | payer OTHER, SELFPAY | PROVIDERS: PCP Nurse Practitioner Family | DX: F10.20 Alcohol dependence, uncomplicated (principal) | CPT/HCPCS: 96372; J2315 ==

== ENCOUNTER 2025-01-06 09:56 | Outpatient (AMB) | payer OTHER, SELFPAY ==
[2025-01-06 10:02] VITALS: BP 132/72; PULSE 62; O2SAT 98
--- NOTE | 2025-01-06 10:02 | AM.OFFVISNUR ---
Vital Signs 01/06/25 10:02 Height 5 ft 8 in BP 132/72 Pulse 62 Pulse Oximetry (%) 98 Intake Visit Reasons: Injection Allergies Seasonal Allergies Allergy (Intermediate, Verified 01/06/25 10:03) Itchy Eyes Nursing Note Dhaval presents today for his 4 week (second) Vivitrol injection. Dhaval reports feeling overall okay though struggling with cravings the past 6 days. He was tearful at times and report alcohol consumption last night after stressors mounted due to a new job and a close friend having medical issues. He is recovery oriented but struggling with trying to find sources of support. Identifying coping mechanisms and outlets for anxiety were discussed. He was referred to a power and recovery supervisor though having a difficult time connecting with them. He used to attend AA meetings and is considering trying to find a home group again; given a [facility] schedule and told about the mAA meeting held on [facility] on Sundays. Dhaval was interested in SM[facility] Recovery, TW will look for groupp meeting locations and update Dhaval. Follow-up scheduled in 4 weeks for next injection. Office Meds Vivitrol 380 mg intramuscular suspension,extended release Performing Provider: OLLIE Navarrete Performing Location: [facility] Administered by: Cyn Saini RN on 01/06/25 10:29 Dose Route Admin Location Dispensed Lot Number Expiration Date [facility] [place] 380 mg IM LG 380 mg [id number] 01/09/27 [id number] 2C2P Total Dispensed Waste 380 mg 0 % Comments: Pt is present for 4 week Vivitrol 380 mg injection. Pt denies any concern with previous injections and tolerated injection well. Educated on signs and symptoms of infection and encouraged to call [facility] with any related questions or concerns, pt verbalized understanding. Follow-up scheduled in 4 weeks for next injection. Assessment & Plan Assessment & Plan Orders: Orders AMB Naltrexone Injection Patient Supplied (NC) Today F10.20 - Alcohol dependence, uncomplicated, F10.90 - Alcohol use, unspecified, uncomplicated Coding
== END 2025-01-06 10:43 | disposition home or self-care (01) ==
LOC: HO.HCC 09:56
PROVIDERS: PCP Nurse Practitioner Family
DX: F10.20 Alcohol dependence, uncomplicated (principal)

== ENCOUNTER → 2025-01-06 09:56 | Outpatient (BNVA) | payer SELFPAY | PROVIDERS: PCP Nurse Practitioner Family | DX: F10.20 Alcohol dependence, uncomplicated (principal) | CPT/HCPCS: 96372; J2315 ==

== ENCOUNTER 2025-02-07 08:55 | Outpatient (AMB) | payer OTHER, SELFPAY ==
--- NOTE | 2025-02-07 08:56 | AM.OFFVISNUR ---
Vital Signs 02/07/25 09:06 BP 136/78 Pulse 74 Pulse Oximetry (%) 97 Intake Visit Reasons: Injection Allergies Seasonal Allergies Allergy (Intermediate, Verified 02/07/25 09:07) Itchy Eyes Nursing Note Dhaval is here for his 4 week Vivitrol, (3rd) injection. Dhaval is alert, oriented, cooperative with care and presents with appropriate affect. Dhaval is feeling discouraged due to still drinking, though trying to stay positive. Dhaval reports that he has been making healthier choices in general and plans on attending an AA meeting at lunch time today. He is aware of the benefits as he has attended in the past. CBT benefits and SMART recovery meetings discussed. Follow up in 4 weeks for next injection. Office Meds Vivitrol 380 mg intramuscular suspension,extended release Performing Provider: OLLIE Navarrete Performing Location: [facility] Administered by: Cyn Saini RN on 02/07/25 09:31 Dose Route Admin Location Dispensed Lot Number Expiration Date [facility] Returning Officer 380 mg IM RG 380 mg [id number] 05/11/27 [id number] [employer] Total Dispensed Waste 380 mg 0 % Comments: Pt is present for Vivitrol injection, denies complications with previous injections and tolerated injection well. Pt educated on signs and symptoms of infection at the injection site, urged to call [facility] with any questions or concerns. Follow up appointment made in 4 weeks for next injection. Assessment & Plan Assessment & Plan Orders: Orders AMB Naltrexone Injection Patient Supplied (NC) Today F10.20 - Alcohol dependence, uncomplicated Coding
[2025-02-07 09:06] VITALS: BP 136/78; PULSE 74; O2SAT 97
== END 2025-02-07 09:46 | disposition home or self-care (01) ==
LOC: HO.HCC 08:55
PROVIDERS: PCP Nurse Practitioner Family
DX: F10.20 Alcohol dependence, uncomplicated (principal)

== ENCOUNTER → 2025-02-07 08:55 | Outpatient (BNVA) | payer OTHER, SELFPAY | PROVIDERS: PCP Nurse Practitioner Family | DX: F10.20 Alcohol dependence, uncomplicated (principal) | CPT/HCPCS: 96372; J2315 ==

== ENCOUNTER 2025-03-01 08:42 | Outpatient (AMB) | payer OTHER, SELFPAY ==
--- NOTE | 2025-03-01 08:46 | MHC.OFFVIS ---
Vital Signs 03/01/25 08:51 Height 5 ft 8 in Weight 225 lb BMI 34.2 BP 126/78 Blood Pressure Location Rt brachial Position Sitting Pulse 72 Pulse Source Pulse Oximeter Pulse Oximetry (%) 98 Oxygen Delivery Method Room Air Intake Visit Reasons: 6 mos FUV. H Pylori BT, Discuss colo Intake Note: ESTABLISHED PATIENT for GERD mgmt. CC; C.O. GERD persistence per having to hold the PPI for HP testing. No additional concerns at this time. 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 H Pylori BT, Discuss colo: Details: LAST VISIT: Helicobacter pylori (H. pylori) GERD (gastroesophageal reflux disease) Status post colonoscopy Plan Patient will start treatment for H pylori for 2 weeks. Avoid alcohol and vinegar products. Patient will start pantoprazole daily. Avoid dietary triggers and late night snacking. Staying upright for minimum 3 hours after meals discussed with patient. Patient will be rescheduled for another colonoscopy at some point. Will follow-up in 6 months. Patient will call our office if he will have any GI concerning symptoms. Patient is agreeable to this plan and verbalizes understanding of instructions. He was given the opportunity to ask questions and all questions answered. ? Thank you for allowing me to participate in his care New pantoprazole take one tablet half an hour before breakfast 40 mg PO DAILY 30 tabs 2RF K21.9 bismuth subsalicylate 2 tabs PO QID 14 days 112 tabs 0RF A04.8 metronidazole 1,000 mg (2 x 500 mg) PO BID 56 tabs 0RF A04.8 doxycycline hyclate 100 mg PO BID 14 days 28 caps 0RF Discontinued omeprazole Discontinued Reason: Doctor's Order 20 mg (2 x 10 mg) PO DAILY 90 days 180 caps 0RF TODAY'S VISIT Patient is here today for follow-up and for H pylori testing. Patient reports that he has been doing fairly well, however in the past couple weeks his reflux is worse as he had to stop his PPI in order to come for breath test. He will have a breakfast today. Patient reports that he completed the antibiotics. Patient will be due to go for colonoscopy after May of 2025 due to suboptimal prep. Patient reports that he has been doing better otherwise. He is changing his diet and eating healthier. Trying to increase fiber in his diet. Patient denies any other GI concerning symptoms. [facility] Medical History GERD (gastroesophageal reflux disease) Helicobacter pylori (H. pylori) Tick bites Pigmentary glaucoma ADHD, predominantly inattentive type Generalized anxiety disorder Depression Surgical History [place] teeth extracted History of root canal procedure Family History Maternal Grandfather Lung cancer Mother Basal cell carcinoma Other Mental health disorder Substance abuse Social History Household Members: Children Housing: House Alcohol intake: current Alcohol intake frequency: 0-2 drinks per day Alcohol type: beer Patient Tobacco Use Status: Former Tobacco user Tobacco use type: Cigarette and Smokeless Tobacco e-Cigarette/Vaping Use: Former Use Second Hand Smoke Exposure: No Substance Use Type: Marijuana service: No Current occupational status: employed Current occupation: [employer] Current occupational exposures/hazards: No Cognitive needs: No Hearing needs: Yes Vision needs: Yes Review of Systems Const Denies weight gain and Denies weight loss ENT Reports no additional complaints, Denies dysphagia and Denies odynophagia Card Reports no additional complaints Resp Reports no additional complaints GI Denies abdominal pain, Denies belching, Denies melena, Denies bloating, Denies change in bowel habits, Denies dysphagia, Denies excessive flatus, Denies dyspepsia, Reports heartburn (Occasional), Denies diarrhea, Denies loose stools, Denies nausea, Denies odynophagia and Denies vomiting Reports no additional complaints Musc Reports no additional complaints Neuro Reports no additional complaints Psych Reports no additional complaints Endo Reports no additional complaints Physical Exam Vital Signs: Last Vital Signs Pulse 72 03/01/25 08:51 BP 126/78 03/01/25 08:51 Pulse Ox 98 03/01/25 08:51 Oxygen Delivery Method Room Air 03/01/25 08:51 BMI result Body Mass Index 34.2 Const General: healthy appearing and no acute distress Nutritional Appearance: obese Orientation/consciousness: patient oriented x3 Resp Effort & Inspection: normal respiratory effort, able to speak in complete sentences, no tracheal deviation and symmetric chest movement Auscultation: clear to auscultation bilaterally Cardio Rate: regular rate GI Inspection: Yes normal to inspection and No distended Palpation (GI): Soft to palpation, not firm, nontender and No hepatosplenomegaly present Auscultation: normal bowel sounds General: Yes no CVA tenderness Back/Spine/Pelvis Back: no CVA tenderness Skin General skin exam: elasticity normal, turgor normal and dry skin Neuro General: patient oriented x3 Psych Appearance: grossly normal Mental Status: mental status grossly normal Assessment & Plan Assessment & Plan (1) GERD (gastroesophageal reflux disease): Code(s): K21.9 - Gastro-esophageal reflux disease without esophagitis Category: Medical Qualifiers: Esophagitis presence: esophagitis presence not specified Qualified Code(s): K21.9 - Gastro-esophageal reflux disease without esophagitis (2) Helicobacter pylori (H. pylori): Code(s): A04.8 - Other specified bacterial intestinal infections Category: Medical Plan H pylori breath testing today. Patient can start taking his pantoprazole tomorrow. Avoid dietary triggers and late night snacking. Staying upright for minimal 3 hours after meals discussed with him. Patient will return in 6 months we will discuss going for colonoscopy. Patient is agreeable to current plan of care and verbalizes understanding of instructions. He was given the opportunity to ask questions and all questions answered. Thank you for allowing me to participate in his care Orders: Orders H Pylori Breath Test 03/01/25 K21.9 - Gastro-esophageal reflux disease without esophagitis Coding Level of Care Code Est Pt Level 4 (28785) Complex EM visit Add On G2211 Diagnoses Gastroesophageal reflux disease, unspecified whether esophagitis present K21.9 Esophagitis presence: esophagitis presence not specified Helicobacter pylori (H. pylori) A04.8 Time Spent (min) 35 Comment 25 minutes spent with patient and additional 10 minutes spent reviewing his records
[2025-03-01 08:51] VITALS: BP 126/78; PULSE 72; O2SAT 98; BMI 34.2
== END 2025-03-01 09:47 | disposition home or self-care (01) ==
PROVIDERS: PCP Nurse Practitioner Family; Visit Provider Nurse Practitioner Family
DX: K21.9 Gastro-esophageal reflux disease without esophagitis (principal); A04.8 Other specified bacterial intestinal infections
CPT/HCPCS: 99214; G2211

== ENCOUNTER 2025-03-01 08:42 | Outpatient (REF) | payer OTHER, SELFPAY | END 2025-03-01 08:43 | disposition home or self-care (01) | LOC: HO.LNP 08:42 | PROVIDERS: PCP Nurse Practitioner Family; Visit Provider Nurse Practitioner Family | DX: K21.9 Gastro-esophageal reflux disease without esophagitis (principal); A04.8 Other specified bacterial intestinal infections | CPT/HCPCS: 83013 ==